=== PATIENT | female | born 1950 | race Caucasian/White ===

== ENCOUNTER 2020-05-02 08:15 | Outpatient (REF) | payer MEDICARE, SELFPAY ==
[2020-05-02 11:24] LABS: MANUAL DIFF FLAG NO
[2020-05-02 11:40] LABS: Basophils Percent Auto 0.5 % (0-2); Eosinophils Absolute Auto 0.2 X10*3/uL (0.0-0.4); Hematocrit 41.8 % (37-47); Hemoglobin 13.5 g/dl (12.0-16.0); Imm Gran Abs Auto 0.01 X10*3/uL (0.00-0.03); Imm Gran Pct Auto 0.2 % (0.0-0.4); Lymphocytes Absolute Auto 1.6 X10*3/uL (1.2-4.9); Lymphocytes Percent Auto 27.9 % (20-40); Mean Corpuscular HGB Conc 32.3 g/dl (31.0-35.0); Mean Corpuscular Volume 89.7 fL (80-98); Mean Platelet Volume 11.3 fL (9.4-12.3); Monocytes Absolute Auto 0.5 X10*3/uL (0.1-1.2); Monocytes Percent Auto 9.2 % (2-11); Neutrophils Absolute Auto 3.4 X10*3/uL (2.0-8.3); Neutrophils Percent Auto 59.2 % (45-73); Platelet Count 252 X10*3/uL (160-400); Red Blood Count 4.66 X10*6/uL (4.20-5.50); Red Cell Distribution Width 13.1 % (11.0-16.0); White Blood Count 5.7 X10*3/uL (4.8-10.8)
[2020-05-02 12:31] LABS: Thyroid Stimulating Hormone 2.02 mIU/mL (0.32-4.0)
[2020-05-02 12:32] LABS: Alanine Aminotransferase 22 U/L (0-31); Albumin Level 4.2 g/dL (3.5-5.0); Alkaline Phosphatase 98 U/L (39-117); Anion Gap 13 (12-20); Aspartate Amino Transferase 19 U/L (5-31); Bilirubin Total 0.5 mg/dL (0.0-1.0); Blood Urea Nitrogen 15 mg/dL (9-16); Calcium 8.4 mg/dL (8.4-10.2); Carbon Dioxide 30 mmol/L (22-29); Chloride 101 mmol/L (96-108); Cholesterol 183 mg/dL; Estimated Glomerular Filt Rate > 60; Glucose Fasting 104 mg/dL (60-99); HDL Cholesterol 43 mg/dL; LDL Cholesterol Calculated 107 mg/dl; Sodium 140 mmol/L (135-145); Total Protein 6.8 g/dL (6.5-8.0); Triglycerides 166 mg/dL
== END 2020-05-02 08:16 | disposition home or self-care (01) ==
LOC: HO.HMGCLDS 08:15
PROVIDERS: PCP Internal Medicine; Visit Provider Internal Medicine
DX: E66.09 Other obesity due to excess calories (principal); M79.7 Fibromyalgia; I10 Essential (primary) hypertension; Z91.09 Other allergy status, other than to drugs and biological substances
CPT/HCPCS: 36415; 80053; 80061; 84443; 85025

== ENCOUNTER 2021-05-01 08:11 | Outpatient (REF) | payer MEDICARE, SELFPAY ==
--- NOTE | ~2021-05-01 | MM_ITS ---
EXAMINATION: MM SCREENING DIGITAL BREAST TOMOSYNTHESIS, BILATERAL CLINICAL INFORMATION: Screening. Asymptomatic. The lifetime risk of breast cancer based on the Tyrer-Cuzick Model is 4.5%. COMPARISON: Mammography: November 14, 2018 and studies dating back to May 10, 2012 TECHNIQUE: Digital breast tomosynthesis is performed in both the craniocaudal and mediolateral oblique views along with computer-aided detection (CAD). Synthesized 2D images are generated from the tomosynthesis. FINDINGS: The breasts are almost entirely fatty (ACR BI-RADS breast composition Category a). There are no significant masses, abnormal calcifications, or other abnormalities. MM/MM tomosynthesis screening BI IMPRESSION: There are no significant changes from prior study. ASSESSMENT: BI-RADS 1: Negative RECOMMENDATION: Routine annual mammography screening. This patient's information was entered into a reminder system with a target due date for their next mammogram.
== END 2021-05-01 08:12 | disposition home or self-care (01) ==
LOC: HO.MAMMO 08:11
PROVIDERS: Visit Provider Internal Medicine
DX: Z12.31 Encounter for screening mammogram for malignant neoplasm of breast (principal)
CPT/HCPCS: 77063; 77067

== ENCOUNTER 2022-05-06 07:53 | Outpatient (REF) | payer MEDICARE, SELFPAY ==
--- NOTE | ~2022-05-06 | MM_ITS ---
EXAMINATION: MM SCREENING DIGITAL BREAST TOMOSYNTHESIS, BILATERAL CLINICAL INFORMATION: Screening. Asymptomatic. COMPARISON: Mammography: 05/01/2021, 11/14/2018, 11/11/2017 TECHNIQUE: Digital breast tomosynthesis is performed in both the craniocaudal and mediolateral oblique views along with computer-aided detection (CAD). Synthesized 2D images are generated from the tomosynthesis. FINDINGS: The breasts are almost entirely fatty (ACR BI-RADS breast composition Category a). There are no significant masses, abnormal calcifications, or other abnormalities. Background stromal markings similar to prior studies. No developing density or architectural abnormality. The axilla are unremarkable. Skin contours are smooth. MM/MM tomosynthesis screening BI IMPRESSION: No mammographic evidence of malignancy. ASSESSMENT: BI-RADS 1: Negative RECOMMENDATION: Routine annual mammography screening. This patient's information was entered into a reminder system with a target due date for their next mammogram.
== END 2022-05-06 07:54 | disposition home or self-care (01) ==
LOC: HO.MAMMO 07:53
PROVIDERS: PCP Internal Medicine; Visit Provider Internal Medicine
DX: Z12.31 Encounter for screening mammogram for malignant neoplasm of breast (principal)
CPT/HCPCS: 77063; 77067

== ENCOUNTER 2022-07-10 08:33 | Outpatient (REF) | payer MEDICARE, SELFPAY ==
[2022-07-10 11:27] LABS: MANUAL DIFF FLAG NO
[2022-07-10 11:28] LABS: Appearance Urine Turbid; Color Urine Yellow; Glucose Urine UA Negative (Negative); Leukocyte Esterase Urine Moderate (2+) (Negative); Nitrite Urine Negative (Negative); PH 5.5 (5.0-9.0); Specific Gravity - Urine 1.025 (1.005-1.025); UMIC TRIGGER UA YES; Urine Blood Negative (Negative); Urine Ketones Negative (Negative); Urine Protein Trace mg/dL (Neg-Trace)
[2022-07-10 11:47] LABS: Bacteria Urine None Seen (None Seen); Hyaline Casts Urine 0-2 /LPF (0-2); Other Crystals Urine Present; WBC Urine 21-50 /HPF (0-5)
[2022-07-10 11:48] LABS: Basophils Absolute Auto 0.1 X10*3/uL (0.0-0.2); Basophils Percent Auto 0.8 % (0-2); Eosinophils Absolute Auto 0.2 X10*3/uL (0.0-0.4); Eosinophils Percent Auto 3.4 % (0-4); Hematocrit 42.2 % (37.0-47.0); Hemoglobin 13.3 g/dl (12.0-16.0); Imm Gran Abs Auto 0.02 X10*3/uL (0.00-0.03); Imm Gran Pct Auto 0.3 % (0.0-0.4); Lymphocytes Absolute Auto 2.1 X10*3/uL (1.2-4.9); Lymphocytes Percent Auto 31.4 % (20-40); Mean Corpuscular HGB Conc 31.5 g/dl (31.0-35.0); Mean Corpuscular Hemoglobin 28.4 pg (27.0-33.0); Mean Platelet Volume 10.8 fL (9.4-12.3); Monocytes Absolute Auto 0.6 X10*3/uL (0.1-1.2); Monocytes Percent Auto 9.8 % (2-11); Neutrophils Absolute Auto 3.6 x10*3/uL (2.0-8.3); Neutrophils Percent Auto 54.3 % (45-73); Platelet Count 270 X10*3/uL (160-400); Red Blood Count 4.69 X10*6/uL (4.20-5.50); Red Cell Distribution Width 13.2 % (11.0-16.0); White Blood Count 6.5 X10*3/uL (4.8-10.8)
[2022-07-10 12:01] LABS: Estimated Average Glucose 108 mg/dL; Hemoglobin A1c % 5.4 %
[2022-07-10 12:29] LABS: Alanine Aminotransferase 21 U/L (0-31); Albumin Level 3.9 g/dL (3.5-5.0); Alkaline Phosphatase 99 U/L (39-117); Anion Gap 10 (12-20); Aspartate Amino Transferase 15 U/L (5-31); Bilirubin Total 0.5 mg/dL (0.0-1.0); Blood Urea Nitrogen 19 mg/dL (9-16); Calcium 9.1 mg/dL (8.4-10.2); Carbon Dioxide 33 mmol/L (22-29); Chloride 102 mmol/L (96-108); Cholesterol 206 mg/dL; Estimated Glomerular Filt Rate > 60; Glucose Fasting 88 mg/dL (60-99); HDL Cholesterol 46 mg/dL; LDL Cholesterol Calculated 131 mg/dl; Sodium 141 mmol/L (135-145); Total Protein 6.4 g/dL (6.5-8.0); Triglycerides 145 mg/dL
[2022-07-10 12:46] LABS: Thyroid Stimulating Hormone 3.05 uIU/mL (0.32-4.0); Vitamin D 25-OH Total 28.3 ng/mL (>30)
== END 2022-07-10 08:34 | disposition home or self-care (01) ==
LOC: HO.HMGCLDS 08:33
PROVIDERS: PCP Internal Medicine; Visit Provider Internal Medicine
DX: I10 Essential (primary) hypertension (principal); E78.00 Pure hypercholesterolemia, unspecified; K21.9 Gastro-esophageal reflux disease without esophagitis; E66.09 Other obesity due to excess calories; M79.7 Fibromyalgia; K52.9 Noninfective gastroenteritis and colitis, unspecified; Z91.09 Other allergy status, other than to drugs and biological substances
CPT/HCPCS: 36415; 80053; 80061; 81001; 82306; 83036; 84443; 85025

== ENCOUNTER 2023-02-05 09:16 | Outpatient (REF) | payer MEDICARE, SELFPAY ==
--- NOTE | 2023-02-05 | PFT_ITS ---
FLOWS: 1. FEV1 90% of predicted at 1.71 L. 2. FVC 81% of predicted at 2.03 L. 3. FEV1 to FVC ratio of 0.84. 4. No bronchodilator response. LUNG VOLUMES: 1. Total lung capacity 80% of predicted at 3.59 L. 2. Residual volume 73% of predicted at 1.47 L. 3. Slow vital capacity 86% of predicted at 2.12 L. 4. Expiratory reserve volume 17 % of predicted at 0.09 L. 5. Diffusion capacity is normal. IMPRESSION: No obstructive or restrictive ventilatory defect. No bronchodilator response. Decreased expiratory reserve volume suggests extrathoracic restriction likely secondary to abdominal obesity. Solis John MD AP/MODL / [id number]
--- NOTE | ~2023-02-05 | XR_ITS ---
EXAMINATION: XR CHEST CLINICAL INFORMATION: Chronic cough COMPARISON: None available. TECHNIQUE: 2 views of the chest were obtained. FINDINGS: No significant abnormality is noted involving the heart, lungs, mediastinum, bony thorax or soft tissues. XR/XR chest 2V IMPRESSION: Unremarkable examination.
== END 2023-02-05 09:17 | disposition home or self-care (01) ==
LOC: HO.RESP 09:16
PROVIDERS: PCP Internal Medicine; Visit Provider Internal Medicine
DX: R05.3 Chronic cough (principal)
CPT/HCPCS: 71046; 94010; 94727; 94729

== ENCOUNTER → 2023-02-05 09:20 | Outpatient (BNV) | payer MEDICARE, SELFPAY | PROVIDERS: PCP Internal Medicine; Visit Provider Internal Medicine Pulmonary Disease | DX: R06.09 Other forms of dyspnea (principal); R05.3 Chronic cough | CPT/HCPCS: 94060; 94727; 94729 ==

== ENCOUNTER 2023-05-06 08:47 | Outpatient (REF) | payer MEDICARE, SELFPAY ==
--- NOTE | ~2023-05-06 | MR_ITS ---
EXAMINATION: MR BRAIN WITHOUT CONTRAST CLINICAL INFORMATION: Cerebellar ataxia COMPARISON: None TECHNIQUE: Multiplanar multisequence MR imaging of the brain was obtained without intravenous contrast. FINDINGS: There is no acute infarct on diffusion-weighted imaging. There is no intracranial hemorrhage on iron-sensitive imaging. No extra-axial collection or mass effect/herniation. There are several scattered foci of nonspecific supratentorial white matter T2/FLAIR signal abnormality. No hydrocephalus. The ventricles are normal in morphology and size. The major flow voids at the skull base are preserved. The midline structures are normal. The cerebellar tonsils are normally positioned. The craniocervical junction is normal. Marrow signal is within normal limits. The visualized soft tissues are without significant abnormality. No signal abnormality within the paranasal sinuses or within the mastoid air cells. MR/MR head/brain wo con IMPRESSION: Unremarkable noncontrast MRI of the brain.
== END 2023-05-06 08:48 | disposition home or self-care (01) ==
LOC: HO.MRI 08:47
PROVIDERS: PCP Internal Medicine; Visit Provider Psychiatry & Neurology Neurology
DX: G11.9 Hereditary ataxia, unspecified (principal)
CPT/HCPCS: 70551

== ENCOUNTER 2023-05-12 08:04 | Outpatient (REF) | payer MEDICARE, SELFPAY ==
--- NOTE | ~2023-05-12 | MM_ITS ---
EXAMINATION: MM SCREENING DIGITAL BREAST TOMOSYNTHESIS, BILATERAL CLINICAL INFORMATION: Screening. Asymptomatic. COMPARISON: Mammography: This study is compared with prior exams dating back to 2017. TECHNIQUE: Digital breast tomosynthesis is performed in both the craniocaudal and mediolateral oblique views along with computer-aided detection (CAD). Synthesized 2D images are generated from the tomosynthesis. FINDINGS: The breasts are almost entirely fatty (ACR BI-RADS breast composition Category a). There are no significant masses, abnormal calcifications, or other abnormalities. MM/MM tomosynthesis screening BI IMPRESSION: No mammographic evidence of malignancy. ASSESSMENT: BI-RADS BI-RADS 1 - Negative RECOMMENDATION: Routine annual mammography screening. 1 year F/U This examination should not preclude the clinical evaluation of a suspicious palpable abnormality. This patient's information was entered into a reminder system with a target due date for their next mammogram.
== END 2023-05-12 08:05 | disposition home or self-care (01) ==
LOC: HO.MAMMO 08:04
PROVIDERS: PCP Internal Medicine; Visit Provider Internal Medicine
DX: Z12.31 Encounter for screening mammogram for malignant neoplasm of breast (principal)
CPT/HCPCS: 77063; 77067

== ENCOUNTER → 2023-05-12 08:15 | Outpatient (BNV) | payer MEDICARE, SELFPAY | PROVIDERS: PCP Internal Medicine; Visit Provider Radiology Diagnostic Radiology | DX: Z12.31 Encounter for screening mammogram for malignant neoplasm of breast (principal) | CPT/HCPCS: 77063; 77067 ==

== ENCOUNTER 2024-02-24 08:07 | Outpatient (REF) | payer MEDICARE, SELFPAY ==
[2024-02-24 10:01] LABS: MANUAL DIFF FLAG NO
[2024-02-24 10:05] LABS: Basophils Percent Auto 0.6 % (0-2); Eosinophils Absolute Auto 0.2 X10*3/uL (0.0-0.4); Eosinophils Percent Auto 3.2 % (0-4); Hematocrit 42.5 % (37.0-47.0); Imm Gran Abs Auto 0.02 X10*3/uL (0.00-0.03); Imm Gran Pct Auto 0.3 % (0.0-0.4); Lymphocytes Absolute Auto 1.9 X10*3/uL (1.2-4.9); Lymphocytes Percent Auto 27.8 % (20-40); Mean Corpuscular HGB Conc 32.9 g/dl (31.0-35.0); Mean Corpuscular Hemoglobin 29.5 pg (27.0-33.0); Mean Corpuscular Volume 89.7 fL (80.0-98.0); Mean Platelet Volume 11.3 fL (9.4-12.3); Monocytes Absolute Auto 0.6 X10*3/uL (0.1-1.2); Neutrophils Percent Auto 59.1 % (45-73); Platelet Count 248 X10*3/uL (160-400); Red Blood Count 4.74 X10*6/uL (4.20-5.50); Red Cell Distribution Width 13.9 % (11.0-16.0); White Blood Count 6.8 X10*3/uL (4.8-10.8)
[2024-02-24 10:26] LABS: Alanine Aminotransferase 21 U/L (0-31); Albumin Level 4.2 g/dL (3.5-5.0); Alkaline Phosphatase 92 U/L (39-117); Anion Gap 12 (12-20); Aspartate Amino Transferase 17 U/L (5-31); Bilirubin Total 0.8 mg/dL (0.0-1.0); Blood Urea Nitrogen 19 mg/dL (9-16); Calcium 9.8 mg/dL (8.4-10.2); Carbon Dioxide 29 mmol/L (22-29); Chloride 103 mmol/L (96-108); Cholesterol 178 mg/dL (<200); Estimated Glomerular Filt Rate > 60; Glucose Fasting 114 mg/dL (60-99); HDL Cholesterol 42 mg/dL (>40); LDL Cholesterol Calculated 109 mg/dL (<100); Potassium 4.2 mmol/L (3.3-5.1); Sodium 140 mmol/L (135-145); Total Protein 7.2 g/dL (6.5-8.0); Triglycerides 137 mg/dL (<150)
[2024-02-24 10:45] LABS: Thyroid Stimulating Hormone 2.14 uIU/mL (0.32-4.0)
== END 2024-02-24 08:08 | disposition home or self-care (01) ==
LOC: HO.HMGCLDS 08:07
PROVIDERS: PCP Internal Medicine; Visit Provider Internal Medicine
DX: I10 Essential (primary) hypertension (principal); E78.00 Pure hypercholesterolemia, unspecified; R05.3 Chronic cough; K21.9 Gastro-esophageal reflux disease without esophagitis; E66.09 Other obesity due to excess calories; Z91.09 Other allergy status, other than to drugs and biological substances
CPT/HCPCS: 36415; 80053; 80061; 84443; 85025

== ENCOUNTER 2024-05-17 09:38 | Outpatient (REF) | payer MEDICARE, SELFPAY ==
--- NOTE | ~2024-05-17 | MM_ITS ---
EXAMINATION: MM SCREENING DIGITAL BREAST TOMOSYNTHESIS, BILATERAL CLINICAL INFORMATION: Screening. Asymptomatic. COMPARISON: Mammography: Comparison is made with available priors TECHNIQUE: Digital breast mammography with tomosynthesis is performed in both the craniocaudal and mediolateral oblique views along with computer-aided detection (CAD). FINDINGS: There are scattered areas of fibroglandular density (ACR BI-RADS breast composition Category b). There are no significant masses, abnormal calcifications, or other abnormalities. MM/MM tomosynthesis screening BI IMPRESSION: No mammographic evidence of malignancy. ASSESSMENT: BI-RADS BI-RADS 1 - Negative RECOMMENDATION: Routine annual mammography screening. 1 year F/U This examination should not preclude the clinical evaluation of a suspicious palpable abnormality. This patient's information was entered into a reminder system with a target due date for their next mammogram. Electronically signed by: Leslie Luu DO 05/24/2024 12:40 PM [facility]
== END 2024-05-17 09:39 | disposition home or self-care (01) ==
LOC: HO.MAMMO 09:38
PROVIDERS: PCP Internal Medicine; Visit Provider Internal Medicine
DX: Z12.31 Encounter for screening mammogram for malignant neoplasm of breast (principal)
CPT/HCPCS: 77063; 77067

== ENCOUNTER → 2024-05-17 09:45 | Outpatient (BNV) | payer MEDICARE, SELFPAY | PROVIDERS: PCP Internal Medicine; Visit Provider Internal Medicine | DX: Z12.31 Encounter for screening mammogram for malignant neoplasm of breast (principal) | CPT/HCPCS: 77063; 77067 ==

== ENCOUNTER 2024-11-29 11:13 | Outpatient (AMB) | payer MEDICARE, SELFPAY ==
--- NOTE | 2024-11-29 11:14 | A.OFFPC_ITS ---
Vital Signs 11/29/24 11:44 Height 5 ft Weight 205 lb BMI 40.0 BP 177/79 H Respiration 14 Pulse 62 Pulse Source Pulse Oximeter Temp 97.9 F Temp Source Temporal Artery Scan Pulse Oximetry (%) 98 Oxygen Delivery Method Room Air Intake Visit Reasons: 6 Month Follow Up [employer] Registrar Required: No Accompanied by: Self / Same As Patient Allergies acetaminophen [Fioricet] Allergy (Unknown, Verified 11/29/24 13:04) Unknown butalbital [Fioricet] Allergy (Unknown, Verified 11/29/24 13:04) Unknown caffeine [Fioricet] Allergy (Unknown, Verified 11/29/24 13:04) Unknown hydrochlorothiazide Allergy (Unknown, Verified 11/29/24 13:04) Unknown oxycodone [Percocet] Allergy (Unknown, Verified 11/29/24 13:04) Unknown penicillin V Allergy (Unknown, Verified 11/29/24 13:04) Unknown Sulfa (Sulfonamide Antibiotics) Allergy (Unknown, Verified 11/29/24 13:04) Unknown Bactrim Allergy (Unknown, Uncoded 11/29/24 13:04) Unknown Penicillin Allergy (Unknown, Uncoded 11/29/24 13:04) Unknown Pt states no known food allerg Allergy (Unknown, Uncoded 11/29/24 13:04) Unknown Medication List - Last Reconciled 11/29/24 by Penelope Riley PA-C aspirin 81 mg PO DAILY atorvastatin 40 mg PO DAILY cetirizine (Zyrtec) 10 mg PO DAILY PRN dryxdespztp-psiqsfwrl-vbsdrofp 200-62.5-25 mcg (Trelegy Ellipta) 1 ea inhalation DAILY furosemide (Lasix) 80 mg PO DAILY gabapentin 300 mg PO BEDTIME meloxicam 15 mg PO DAILY metoprolol succinate ER 100 mg PO DAILY pantoprazole 40 mg PO DAILY tirzepatide (weight loss) (Zepbound) 2.5 mg (0.5 mL) subcut QWEEK Tobacco use date assessed: 11/29/24 Fall risk assessment: No Falls in past year Last assessed Fall Risk: 11/29/24 Dental Screening Dental Screen Date: 11/29/24 Did you have a dental visit in the last 12 months?: Yes Did you have a dental problem in the last 6 months where you did not have access to dental care?: No Was dental information given to patient?: Patient has dentist HPI 6 Month Follow Up HPI Details The patient is a 74-year-old female presenting for a scheduled six- month follow-up and transition of primary care due to her previous physician's shelter. She also seeks management of multiple chronic conditions including controlled essential hypertension, hyperlipidemia, and osteoarthritis-related pain, which have been stable under current pharmaceutical treatment regimens. The patient notes a chronic cough persisting for over two years, notably attributed by an access specialist to allergens rather than respiratory disease, managed somewhat by a Trelegy inhaler. The patient has a substantial medical history, including bilateral knee replacements, historical uterine cancer, superficial thrombophlebitis, and prediabetes, prompting ongoing surveillance of her metabolic state. Discussion during this visit focused on medication management for existing conditions, addressing ongoing healthcare needs concerning venous insufficiency, GERD-re lated symptoms, and weight management challenges. Compliance with prescribed therapies remains a priority, particularly concerning her prediabetic status and efforts to optimize cardiovascular and overall health. Social History - Family status: noted as health care proxy. - Substance use: Denies use. - Functional status: High blood pressure noted; plans to monitor at home. - Nutrition: Preoccupation with weight m anagement, past use of Trulicity. [facility] Medical History (Updated 11/29/24 @ 13:13 by Penelope Riley PA-C) Osteoarthritis History of mammogram (~05/17/24) Mass of right axilla H/O dysmenorrhea Uterine cancer Cervical erosion GERD (gastroesophageal reflux disease) Vertigo Menopause Fibromyalgia Depression History of colitis Superficial thrombophlebitis Venous insufficiency Varicose veins of both lower extremities Decreased hearing Pure hypercholesterolemia, unspecified Hypertension Prediabetes Hyperlipidemia Morbid obesity with body mass index (BMI) of 40.0 to 44.9 in adult Hoarseness Establishing care with new doctor, encounter for Chronic cough Bronchospasm Surgical History History of colonoscopy (~10/19/18) Family History Father BP (high blood pressure) High cholesterol Heart disease Mother Osteosarcoma Social History Housing: House Alcohol intake: current Alcohol intake frequency: a few times a month Patient Tobacco Use Status: Never used Tobacco service: No Current occupational status: retired Cognitive needs: Yes (cane) Hearing needs: No Vision needs: Yes (reading glasses) Questionnaire PHQ-9 Over the last 2 weeks, how often have you been bothered by any of the following problems? 1. Little interest or pleasure in doing things: not at all 2. Feeling down, depressed, or hopeless: not at all 3. Trouble falling or staying asleep, or sleeping too much: not at all 4. Feeling tired or having little energy: not at all 5. Poor appetite or overeating: not at all 6. Feeling bad about yourself - or that you are a failure or have let yourself or your family down: not at all 7. Trouble concentrating on things, such as reading the newspaper or watching television: not at all 8. Moving or speaking so slowly that other people could have noticed. Or the opposite - being so fidgety or restless that you have been moving around a lot more than usual: not at all 9. Thoughts that you would be better off or of hurting yourself in some way: not at all Total score: 0 Depression Screening Interpretation: Negative Depression Screening Done: Yes 11192 - PHQ-9 Billing: Yes Source: Developed by Drs. Tyshawn Jacques, Zenaida Miramontes, Emil Groves and colleagues, with an educational shahid from [employer]. Thrive Questionnaire Date Thrive assessed: 11/29/24 I am a: Patient What is your living situation today?: I have a steady place to live Within the past 12 months, did the food you bought not last and you didn't have the money to get more?: Never true Within the past 12 months, did you worry whether your food would run out before you got money to buy more?: Never true Do you have trouble paying for medicines?: No Do you have trouble getting transportation to medical appointments?: No Do you have trouble paying your heating and electricity bill?: No Do you have trouble taking care of your child, family member or friend?: No Do you have trouble with day-to-day activities such as bathing, preparing meals, shopping, managing finances, etc.?: No Are you currently unemployed and looking for a job?: No Are you interested in more education?: No Please select the resources that you would like help with: None THRIVE Score: 0 AUDIT C Alcohol Use Questionnaire (AUDIT-C) 1. How often do you have a drink containing alcohol?: 2-4 times a month 2. How many drinks containing alcohol do you have on a typical day when you are drinking?: 1 or 2 3. How often do you have six or more drinks on one occasion?: Never Total Score: 2 Score Reviewed/Action Taken: No MARCO A-7 AMB Questionnaire MARCO A-7 Date MARCO A - 7 assessed: 11/29/24 Feeling nervous, anxious, or on edge: 0 = Not at all Not being able to stop or control worryin = Not at all Worrying too much about different things: 0 = Not at all Trouble relaxin = Not at all Being so restless that it is hard to sit still: 0 = Not at all Becoming easily annoyed or irritable: 0 = Not at all Feeling afraid as if something awful might happen: 0 = Not at all Total MARCO A-7 score (0-4 normal; 5-9 mild; 10-14 moderate; 15-21 severe): 0 Source: Developed by Drs. Tyshawn Jacques, Zenaida Miramontes, Emil Groves and colleagues, with an educational shahid from [employer]. MARCO A-7 Assessment Billing MARCO A-7 Assessment Tool: MARCO A-7 Assessment 29359 Review of Systems Const Details: - Cardiovascular: Denies chest pain; reports stabilized hypertension. - Respiratory: Reports chronic cough, improved but persistent; denies asthma diagnosis. - Musculoskeletal: Reports osteoarthritis pain in knees and neck. - Neurological: Reports vertigo; denies significant neurological episodes. - Gastrointestinal: Reports GERD, historical colitis; denies recent exacerbations. - Genitourinary: Denies dysmenorrhagia currently. - Psychiatric: Reports depression, fibromyalgia history; denies active distress. - Social Work Case Manager: Reports prediabetes; denies diabetes diagnosis. - Dermatological: Denies recent dermatologic issues aside from varicose veins. - Hematological: Denies anemia; reported as resolved. Physical exam (Primary Care) Vital Signs: Last Vital Signs Temp 97.9 F 11/29/24 11:44 Pulse 62 11/29/24 11:44 Resp 14 11/29/24 11:44 BP 177/79 H 11/29/24 11:44 Pulse Ox 98 11/29/24 11:44 Oxygen Delivery Method Room Air 11/29/24 11:44 Care Plan Goal for BP management: <140/90 patient to continue furosemide 80 mg daily, metoprolol 100 mg daily. Patient to monitor her blood pressure daily for the next 2 weeks and return with blood pressure log at that time we will discuss if patient needs to be started on another blood pressure medication. BMI result Body Mass Index 40.0 BMI Assessment/Plan discussion: High BMI High, discussed plan: lifestyle, weight reduction, dietary, physical activity and alcohol moderation Tobacco/Smoking Status: Tobacco use Status Tobacco use date assessed 11/29/24 11/29/24 11:17 Patient Tobacco Use Status Never used Tobacco 11/29/24 11:54 PHQ-9: PHQ-9 Score PHQ-9: Total score 0 11/29/24 11:59 Depression Screening Interpretation: Negative Thrive Assessment: Date of Thrive Assessment Date Thrive assessed 11/29/24 11/29/24 11:17 ACP: Patient is a full code Advance Care Planning discussion: Completed/Scanned Date of discussion: 11/29/24 Who was present: Patient, myself Forms completed: MOLST Time spent: 16-45 minutes Actual minutes spent: 25 Did not discuss due to Cultural/Spiritual beliefs: No Const Other: Appearance: Alert. Oriented X3. No acute distress. Head: Normal external exam. Normocephalic. Atraumatic. Eyes: Pupils are equal, round, and reactive to light. Extraocular movements intact. Conjunctiva and sclera normal. Eyelids normal. Ears: External auditory canal normal. Tympanic membranes normal. Throat: Pharynx normal. Uvula midline. Moist mucous membranes. Neck: Normal inspection. Neck supple. Full range of motion. No adenopathy. Thyroid Normal. No meningeal signs. No neck mass noted. Cardiovascular: Normal heart rate and rhythm. Heart sound normal. No murmurs noted. Pulses normal throughout. Respiratory: No respiratory distress. Painless inspiration. Breath sounds normal. No wheezes/rales/rhonchi noted. Chest nontender. No accessory muscle usage noted or decreased air movement noted. Abdomen: Soft and nontender. Bowel sounds normal in all 4 quadrants. No distention noted. No organomegaly noted. No visible injury noted. Back: No costovertebral angle tenderness. Full range of motion noted. Skin: Skin warm and dry. Normal skin color. Normal skin turgor. No rashes/lesions/lacerations noted. Extremities: No lower extremity edema. Extremities exhibit normal range of motion. Extremities nontender. Neuro: Oriented X 3. No motor deficit. No sensory deficit. Reflexes normal. Results AMB Hemoglobin A1c AMB Hemoglobin A1c 6.0 % Last Edit by RADAMES Nielsen on 11/29/24 13:10 Results Reviewed Results Reviewed: - Labs: CBC, kidney, and liver function tests are within normal limits; A1c at 6.0%. - Tests: Colonoscopy last in 2018, mammogram last in Apr 2024. - Diagnostics: No imaging findings discussed. Coding Level of Care Code New Pt Level 4 (54098) Complex EM visit Add On G2211 Diagnoses Establishing care with new doctor, encounter for Z76.89 Hypertension I10 Chronic cough R05.3 Prediabetes R73.03 Osteoarthritis M19.90 Hyperlipidemia E78.5 Venous insufficiency I87.2 Varicose veins of both lower extremities I83.93 Morbid obesity with body mass index (BMI) of 40.0 to 44.9 in adult E66.01; Z68.41 Additional Codes PHQ-9 - 13273 - PHQ-9 Billing: Yes ([id number]) MARCO A-7 Assessment Billing - MARCO A-7 Assessment Tool: MARCO A-7 Assessment 36268 ([id number]) Vital Signs *Quality* - Advance Care Planning discussion: Completed/Scanned ([id number]) Vital Signs *Quality* - Time spent: 16-45 minutes ([id number]) Time Spent (min) 60 Assessment & Plan Assessment & Plan (1) Establishing care with new doctor, encounter for: Code(s): Z76.89 - Persons encountering health services in other specified circumstances Category: Medical (2) Hypertension: Code(s): I10 - Essential (primary) hypertension Category: Medical Plan: Patient to continue aspirin 81 mg daily, atorvastatin 40 mg daily, furosemide 80 mg daily, metoprolol extended release 100 mg daily. Patient to monitor her blood pressure over the next 2 weeks and bring back blood pressure log at next appointment in 2 weeks to discuss blood pressure management. Condition is chronic and stable continue to monitor. (3) Chronic cough: Code(s): R05.3 - Chronic cough Category: Medical Plan: Plan: Pulmonology referral to assess ongoing symptoms. Condition is chronic and stable continue to monitor. (4) Prediabetes: Code(s): R73.03 - Prediabetes Category: Medical Plan: Plan: Explore weight loss medication options; insurance to confirm Zepbound. Condition is chronic and stable continue to monitor. (5) Osteoarthritis: Code(s): M19.90 - Unspecified osteoarthritis, unspecified site Category: Medical Plan: Plan: Continue with current pain management; observe joint mobilization. Condition is chronic and stable will continue to monitor. (6) Hyperlipidemia: Code(s): E78.5 - Hyperlipidemia, unspecified Category: Medical Plan: Patient to continue atorvastatin 40 mg daily. Plan: Reassess with updated bloodwork. Condition is chronic and stable continue to monitor. (7) Venous insufficiency: Code(s): I87.2 - Venous insufficiency (chronic) (peripheral) Category: Medical Plan: Plan: Maintain status quo; symptom management prioritized. Condition is chronic and stable continue to monitor. (8) Varicose veins of both lower extremities: Code(s): I83.93 - Asymptomatic varicose veins of bilateral lower extremities Category: Medical Plan: Plan: Maintain status quo; symptom management prioritized. Condition is chronic and stable continue to monitor. (9) Morbid obesity with body mass index (BMI) of 40.0 to 44.9 in adult: Code(s): E66.01 - Morbid (severe) obesity due to excess calories; Z68.41 - Body mass index [BMI] 40.0-44.9, adult Category: Medical Plan: Patient to improve diet and exercise regimen. Will attempt to send weight loss medication to the patient's pharmacy pending insurance approval. Condition is chronic and stable continue to monitor. Plan Plan Patient was informed and verbally consented to the use of an ambient scribe for clinic note documentation during this visit. 1. Hypertension Plan: Monitor BP at home and follow up in 2 weeks. 2. Chronic Cough Plan: Pulmonology referral to assess ongoing symptoms. 3. Prediabetes Plan: Explore weight loss medication options; insurance to confirm Zepbound. 4. Osteoarthritis Plan: Continue with current pain management; observe joint mobilization. 5. Hyperlipidemia Plan: Reassess with updated bloodwork. 6. Venous Insufficiency Plan: Maintain status quo; symptom management prioritized. During our consultation, we discussed several chronic issues, predominantly focusing on her cardiovascular health considering recent readings indicating elevated blood pressure. The patient was advised to monitor this at home over the next fortnight and to maintain records, which will inform potential adjustments to Metoprolol dosage upon reassessment. Prediabetes is confirmed via an A1c level of 6.0%, and steps to engage insurance in a trial of Zepbound were initiated, combined with exploration of potential lifestyle/medical referrals. I reiterated the importance of continued adherence to statins for hyperlipidemia and proposed bloodwork for further appraisal. Given the multifaceted nature of the patient's chronic symptoms, including osteoarthritis-related discomfort, established therapy with Meloxicam is maintained, with an emphasis on symptom tracking and activity modulation. Orders: Orders C Reactive Protein Today Z00.00 - Encounter for general adult medical examination without abnormal findings Liver Panel Today Z00.00 - Encounter for general adult medical examination without abnormal findings Lipid Panel Today Z00.00 - Encounter for general adult medical examination without abnormal findings TSH reflex Free T4 Today Z00.00 - Encounter for general adult medical examination without abnormal findings Magnesium Today Z00.00 - Encounter for general adult medical examination without abnormal findings XR DEXA axial skeleton Today M81.0 - Age-related osteoporosis without current pathological fracture Complete Blood Count Auto Diff Today Z00.00 - Encounter for general adult medical examination without abnormal findings Comprehensive Duarte. Panel Fast Today Z00.00 - Encounter for general adult medical examination without abnormal findings Vitamin B12 and Folate Today Z00.00 - Encounter for general adult medical examination without abnormal findings Vitamin D 25-OH Total Today Z00.00 - Encounter for general adult medical examination without abnormal findings AMB Hemoglobin A1c Today R73.03 - Prediabetes Referrals Pulmonology Referral J98.01 - Acute bronchospasm, R05.3 - Chronic cough, R49.0 - Dysphonia Medications: New tirzepatide (weight loss) (Zepbound) for 4 weeks 2.5 mg (0.5 mL) subcut QWEEK 2 mL 0RF E66.01 - Morbid (severe) obesity due to excess calories, E78.5 - Hyperlipidemia, unspecified, I10 - Essential (primary) hypertension, R73.03 - Prediabetes, Z68.41 - Body mass index [BMI] 40.0-44.9, adult Patient Instructions: - Monitor blood pressure at home twice a week for two weeks, record readings. - Follow up with blood pressure results at your next appointment. - Continue current medications as prescribed but ensure monitoring for any side effects. - Arrange a pulmonology consultation for chronic cough evaluation. - Pursue weight management strategies; consult should insurance allow weight loss medication. - Continue cholesterol medication and have blood drawn ahead of your next visit for levels. - Maintain physical activity as tolerated; focus on joint mobility, particularly knees. - Schedule and attend all recommended health screenings, including mammograms and bone scans.
[2024-11-29 11:44] VITALS: BP 177/79; PULSE 62; RESP 14; TEMP 36.6; O2SAT 98; BMI 40.0
== END 2024-11-29 12:36 | disposition home or self-care (01) ==
LOC: HO.HMCSH 11:13
PROVIDERS: PCP Internal Medicine; Visit Provider Physician Assistant Medical
DX: Z76.89 Persons encountering health services in other specified circumstances (principal); I10 Essential (primary) hypertension; R05.3 Chronic cough; R73.03 Prediabetes; M19.90 Unspecified osteoarthritis, unspecified site; E78.5 Hyperlipidemia, unspecified; I87.2 Venous insufficiency (chronic) (peripheral); I83.93 Asymptomatic varicose veins of bilateral lower extremities; E66.01 Morbid (severe) obesity due to excess calories; Z68.41 Body mass index [BMI] 40.0-44.9, adult; Z00.00 Encounter for general adult medical examination without abnormal findings

== ENCOUNTER → 2024-11-29 11:13 | Outpatient (BNVA) | payer MEDICARE, SELFPAY | PROVIDERS: PCP Internal Medicine; Visit Provider Physician Assistant Medical | DX: I10 Essential (primary) hypertension (principal); R05.3 Chronic cough; R73.03 Prediabetes; M19.90 Unspecified osteoarthritis, unspecified site; E78.5 Hyperlipidemia, unspecified; I87.2 Venous insufficiency (chronic) (peripheral); I83.93 Asymptomatic varicose veins of bilateral lower extremities; E66.01 Morbid (severe) obesity due to excess calories; Z68.41 Body mass index [BMI] 40.0-44.9, adult; Z71.3 Dietary counseling and surveillance | CPT/HCPCS: 83036; 96127; 99202; 99497 ==

== ENCOUNTER 2024-12-02 08:03 | Outpatient (REF) | payer MEDICARE, SELFPAY ==
[2024-12-02 11:10] LABS: MANUAL DIFF FLAG NO
[2024-12-02 11:19] LABS: Basophils Absolute Auto 0.1 X10*3/uL (0.0-0.2); Basophils Percent Auto 0.7 % (0-2); Eosinophils Absolute Auto 0.2 X10*3/uL (0.0-0.4); Eosinophils Percent Auto 2.3 % (0-4); Hematocrit 41.5 % (37.0-47.0); Hemoglobin 13.5 g/dl (12.0-16.0); Imm Gran Abs Auto 0.03 X10*3/uL (0.00-0.03); Imm Gran Pct Auto 0.4 % (0.0-0.4); Lymphocytes Absolute Auto 1.8 X10*3/uL (1.2-4.9); Mean Corpuscular HGB Conc 32.5 g/dl (31.0-35.0); Mean Corpuscular Hemoglobin 29.1 pg (27.0-33.0); Mean Corpuscular Volume 89.4 fL (80.0-98.0); Mean Platelet Volume 11.2 fL (9.4-12.3); Monocytes Absolute Auto 0.7 X10*3/uL (0.1-1.2); Monocytes Percent Auto 10.3 % (2-11); Neutrophils Absolute Auto 4.1 x10*3/uL (2.0-8.3); Neutrophils Percent Auto 60.3 % (45-73); Platelet Count 241 X10*3/uL (160-400); Red Blood Count 4.64 X10*6/uL (4.20-5.50); Red Cell Distribution Width 13.8 % (11.0-16.0); White Blood Count 6.8 X10*3/uL (4.8-10.8)
[2024-12-02 11:45] LABS: Alanine Aminotransferase 20 U/L (0-31); Albumin Level 4.1 g/dL (3.5-5.0); Alkaline Phosphatase 106 U/L (39-117); Anion Gap 10 (12-20); Aspartate Amino Transferase 21 U/L (5-31); Bilirubin Direct 0.2 mg/dL (0.0-0.5); Bilirubin Total 0.5 mg/dL (0.0-1.0); Blood Urea Nitrogen 20 mg/dL (9-16); Calcium 9.3 mg/dL (8.4-10.2); Carbon Dioxide 30 mmol/L (22-29); Chloride 105 mmol/L (96-108); Cholesterol 171 mg/dL (<200); Estimated Glomerular Filt Rate > 60; Glucose Fasting 117 mg/dL (60-99); HDL Cholesterol 45 mg/dL (>40); LDL Cholesterol Calculated 104 mg/dL (<100); Magnesium 2.2 mg/dL (1.6-2.6); Sodium 141 mmol/L (135-145); Total Protein 6.8 g/dL (6.5-8.0); Triglycerides 111 mg/dL (<150)
[2024-12-02 12:00] LABS: Folate 13.1 ng/mL (> or = 4.0); Vitamin B12 401 pg/mL (200-900)
[2024-12-02 12:03] LABS: TSH reflex Free T4 2.06 uIU/mL (0.32-4.0); Vitamin D 25-OH Total 39.1 ng/mL (>30)
== END 2024-12-02 08:04 | disposition home or self-care (01) ==
LOC: HO.HMGCLDS 08:03
PROVIDERS: Visit Provider Physician Assistant Medical
DX: Z00.00 Encounter for general adult medical examination without abnormal findings (principal); Z13.220 Encounter for screening for lipoid disorders; Z13.818 Encounter for screening for other digestive system disorders; Z13.29 Encounter for screening for other suspected endocrine disorder; Z13.228 Encounter for screening for other metabolic disorders; Z13.0 Encounter for screening for diseases of the blood and blood-forming organs and certain disorders involving the immune mechanism
CPT/HCPCS: 36415; 80053; 80061; 80076; 82248; 82306; 82607; 82746; 83735; 84443; 85025; 86140

== ENCOUNTER 2024-12-11 10:28 | Outpatient (AMB) | payer MEDICARE, SELFPAY ==
--- NOTE | 2024-12-11 10:26 | A.OFFPC_ITS ---
Vital Signs 12/11/24 10:27 Height 5 ft Weight 204 lb BMI 39.8 BP 140/63 H Blood Pressure Location Lt brachial Position Sitting Respiration 16 Pulse 60 Pulse Source Pulse Oximeter Temp 97.3 F Temp Source Temporal Artery Scan Pulse Oximetry (%) 98 Oxygen Delivery Method Room Air Intake Visit Reasons: 2 Week follow up Cad Draftsman Required: No Accompanied by: Self / Same As Patient Allergies acetaminophen [Fioricet] Allergy (Unknown, Verified 12/11/24 10:27) Unknown butalbital [Fioricet] Allergy (Unknown, Verified 12/11/24 10:27) Unknown caffeine [Fioricet] Allergy (Unknown, Verified 12/11/24 10:27) Unknown hydrochlorothiazide Allergy (Unknown, Verified 12/11/24 10:27) Unknown oxycodone [Percocet] Allergy (Unknown, Verified 12/11/24 10:27) Unknown penicillin V Allergy (Unknown, Verified 12/11/24 10:27) Unknown Sulfa (Sulfonamide Antibiotics) Allergy (Unknown, Verified 12/11/24 10:27) Unknown Bactrim Allergy (Unknown, Uncoded 12/11/24 10:27) Unknown Penicillin Allergy (Unknown, Uncoded 12/11/24 10:27) Unknown Pt states no known food allerg Allergy (Unknown, Uncoded 12/11/24 10:27) Unknown Tobacco use date assessed: 12/11/24 Dental Screening Dental Screen Date: 11/29/24 HPI 2 Week follow up HPI Details The patient is a 74-year-old female presenting for a follow-up visit to manage her blood pressure. She has been on blood pressure medication and reports feeling okay with no significant issues at home, although her blood pressure was occasionally high. Her current medications include furosemide 80 mg and metoprolol 100 mg, which she has taken today. During the visit, her blood pressure was initially recorded at 154/67 mmHg, but after a brief rest, it improved to 140/63 mmHg, which is within the desired range. The patient has received referrals for pulmonology and a bone scan, which are scheduled alongside her mammogram. The patient discussed the issue of obtaining Zepbound, which was not covered by her insurance for weight loss, and the alternative of trying metformin was considered. She was informed about the potential side effect of diarrhea with metformin, and the extended-release form was chosen to minimize gastrointestinal discomfort. [facility] Medical History Full code status Osteoarthritis History of mammogram (~05/17/24) Mass of right axilla H/O dysmenorrhea Uterine cancer Cervical erosion GERD (gastroesophageal reflux disease) Vertigo Menopause Fibromyalgia Depression History of colitis Superficial thrombophlebitis Venous insufficiency Varicose veins of both lower extremities Decreased hearing Pure hypercholesterolemia, unspecified Hypertension Prediabetes Hyperlipidemia Morbid obesity with body mass index (BMI) of 40.0 to 44.9 in adult Hoarseness Establishing care with new doctor, encounter for Chronic cough Bronchospasm Surgical History History of colonoscopy (~10/19/18) Family History Father BP (high blood pressure) High cholesterol Heart disease Mother Osteosarcoma Social History Housing: House Alcohol intake: current Alcohol intake frequency: a few times a month Patient Tobacco Use Status: Never used Tobacco service: No Current occupational status: retired Cognitive needs: Yes (cane) Hearing needs: No Vision needs: Yes (reading glasses) Questionnaire PHQ-9 Over the last 2 weeks, how often have you been bothered by any of the following problems? 1. Little interest or pleasure in doing things: not at all 2. Feeling down, depressed, or hopeless: not at all 3. Trouble falling or staying asleep, or sleeping too much: not at all 4. Feeling tired or having little energy: not at all 5. Poor appetite or overeating: not at all 6. Feeling bad about yourself - or that you are a failure or have let yourself or your family down: not at all 7. Trouble concentrating on things, such as reading the newspaper or watching television: not at all 8. Moving or speaking so slowly that other people could have noticed. Or the opposite - being so fidgety or restless that you have been moving around a lot more than usual: not at all 9. Thoughts that you would be better off or of hurting yourself in some way: not at all Total score: 0 Depression Screening Interpretation: Negative Depression Screening Done: Yes 74173 - PHQ-9 Billing: Yes Source: Developed by Drs. Tyshawn Jacques, Zenaida Miramontes, Emil Groves and colleagues, with an educational shahid from [email or web address]. Thrive Questionnaire Date Thrive assessed: 11/29/24 I am a: Patient What is your living situation today?: I have a steady place to live Within the past 12 months, did the food you bought not last and you didn't have the money to get more?: Never true Within the past 12 months, did you worry whether your food would run out before you got money to buy more?: Never true Do you have trouble paying for medicines?: No Do you have trouble getting transportation to medical appointments?: No Do you have trouble paying your heating and electricity bill?: No Do you have trouble taking care of your child, family member or friend?: No Do you have trouble with day-to-day activities such as bathing, preparing meals, shopping, managing finances, etc.?: No Are you currently unemployed and looking for a job?: No Are you interested in more education?: No Please select the resources that you would like help with: None THRIVE Score: 0 AUDIT C Alcohol Use Questionnaire (AUDIT-C) 1. How often do you have a drink containing alcohol?: 2-4 times a month 2. How many drinks containing alcohol do you have on a typical day when you are drinking?: 1 or 2 3. How often do you have six or more drinks on one occasion?: Never Total Score: 2 Score Reviewed/Action Taken: No MARCO A-7 AMB Questionnaire MARCO A-7 Date MARCO A - 7 assessed: 11/29/24 Feeling nervous, anxious, or on edge: 0 = Not at all Not being able to stop or control worryin = Not at all Worrying too much about different things: 0 = Not at all Trouble relaxin = Not at all Being so restless that it is hard to sit still: 0 = Not at all Becoming easily annoyed or irritable: 0 = Not at all Feeling afraid as if something awful might happen: 0 = Not at all Total MARCO A-7 score (0-4 normal; 5-9 mild; 10-14 moderate; 15-21 severe): 0 Source: Developed by Drs. Tyshawn Jacques, Zenaida Miramontes, Emil Groves and colleagues, with an educational shahid from [email or web address]. MARCO A-7 Assessment Billing MARCO A-7 Assessment Tool: MARCO A-7 Assessment 31100 Review of Systems Const Details: - Cardiovascular: Reports occasional high blood pressure readings at home. Denies chest pain or palpitations. Physical exam (Primary Care) Vital Signs: Last Vital Signs Temp 97.3 F 12/11/24 10:27 Pulse 60 12/11/24 10:27 Resp 16 12/11/24 10:27 BP 154/67 H 12/11/24 10:27 Pulse Ox 98 12/11/24 10:27 Oxygen Delivery Method Room Air 12/11/24 10:27 Care Plan Goal for BP management: <140/90 at Goal BMI result Body Mass Index 39.8 BMI Assessment/Plan discussion: High (Patient was not approve her Zepbound therefore will start patient on metformin for weight loss) BMI High, discussed plan: lifestyle, weight reduction, dietary, physical activity and alcohol moderation Tobacco/Smoking Status: Tobacco use Status Tobacco use date assessed 12/11/24 12/11/24 10:35 Patient Tobacco Use Status Never used Tobacco 12/11/24 10:35 PHQ-9: PHQ-9 Score PHQ-9: Total score 0 12/11/24 10:35 Depression Screening Interpretation: Negative Thrive Assessment: Date of Thrive Assessment Date Thrive assessed 11/29/24 12/11/24 10:35 Const Other: Appearance: Alert. Oriented X3. No acute distress. Head: Normal external exam. Normocephalic. Atraumatic. Eyes: Pupils are equal, round, and reactive to light. Extraocular movements intact. Conjunctiva and sclera normal. Eyelids normal. Throat: Pharynx normal. Uvula midline. Moist mucous membranes. Neck: Normal inspection. Neck supple. Full range of motion Cardiovascular: Blood pressure recorded at 140/63. Normal heart rate and rhythm. Respiratory: No respiratory distress. Painless inspiration. Back: Full range of motion noted. Skin: Skin warm and dry. Normal skin color. Normal skin turgor. No rashes/lesions/lacerations noted. Extremities: Extremities exhibit normal range of motion. Extremities nontender. Neuro: Oriented X 3. No motor deficit. No sensory deficit. Reflexes normal. Coding Level of Care Code Est Pt Level 4 (41235) Complex EM visit Add On G2211 Diagnoses Hypertension I10 Prediabetes R73.03 Morbid obesity with body mass index (BMI) of 40.0 to 44.9 in adult E66.01; Z68.41 Additional Codes MARCO A-7 Assessment Billing - MARCO A-7 Assessment Tool: MARCO A-7 Assessment 77912 ([id number]) PHQ-9 - 54086 - PHQ-9 Billing: Yes ([id number]) Assessment & Plan Assessment & Plan (1) Hypertension: Code(s): I10 - Essential (primary) hypertension Category: Medical Plan: The patient's blood pressure is being managed with furosemide 80 mg and metoprolol 100 mg, which she is taking as prescribed. Her blood pressure was initially high at 154/67 mmHg but improved to 140/63 mmHg after rest, which is within the target range. A follow-up in six months is planned to monitor her blood pressure control. Condition is chronic and stable continue to monitor. (2) Prediabetes: Code(s): R73.03 - Prediabetes Category: Medical Plan: Patient will be started on metformin 500 mg extended release for obesity/prediabetes. Condition is chronic and stable continue to monitor. (3) Morbid obesity with body mass index (BMI) of 40.0 to 44.9 in adult: Code(s): E66.01 - Morbid (severe) obesity due to excess calories; Z68.41 - Body mass index [BMI] 40.0-44.9, adult Category: Medical Plan: Patient will be started on metformin 500 mg extended release for obesity/prediabetes. Condition is chronic and stable continue to monitor. Plan Plan Patient was informed and verbally consented to the use of an ambient scribe for clinic note documentation during this visit. 1. Essential Hypertension The patient's blood pressure is being managed with furosemide 80 mg and metoprolol 100 mg, which she is taking as prescribed. Her blood pressure was initially high at 154/67 mmHg but improved to 140/63 mmHg after rest, which is within the target range. A follow-up in six months is planned to monitor her blood pressure control. 2. Preventative Care The patient has been referred for a pulmonology consultation and a bone scan, which are scheduled alongside her mammogram. During the visit, we discussed the management of the patient's blood pressure, which is currently controlled with furosemide and metoprolol. We also addressed the issue of obtaining Zepbound, which was not covered by insurance, and decided to try metformin as an alternative. The patient was informed about the potential side effects of metformin, including diarrhea, and the extended- release form was chosen to minimize discomfort. Preventative care measures were also discussed, including referrals for pulmonology and a bone scan, which are scheduled alongside her mammogram. A follow-up appointment is planned in six months to reassess her blood pressure management. Medications: New metformin ER 500 mg PO DAILY 90 tabs 1RF Discontinued tirzepatide (weight loss) (Zepbound) for 4 weeks Discontinued Reason: Doctor's Order 2.5 mg (0.5 mL) subcut QWEEK 2 mL 0RF E66.01 - Morbid (severe) obesity due to excess calories, E78.5 - Hyperlipidemia, unspecified, I10 - Essential (primary) hypertension, R73.03 - Prediabetes, Z68.41 - Body mass index [BMI] 40.0-44.9, adult tirzepatide (weight loss) (Zepbound) for 4 weeks. Please prescribe the autoinjector/pen. Discontinued Reason: Duplicate 2.5 mg (0.5 mL) subcut QWEEK 2 mL 0RF E66.01 - Morbid (severe) obesity due to excess calories, E78.00 - Pure hypercholesterolemia, unspecified, E78.5 - Hyperlipidemia, unspecified, I10 - Essential (primary) hypertension, M19.90 - Unspecified osteoarthritis, unspecified site, M79.7 - Fibromyalgia, R73.03 - Prediabetes, Z68.41 - Body mass index [BMI] 40.0-44.9, adult Patient Instructions: - Continue taking furosemide 80 mg and metoprolol 100 mg as prescribed. - Start metformin as discussed, and monitor for any side effects such as diarrhea. - Attend scheduled appointments for pulmonology, bone scan, and mammogram. - Follow up in six months to reassess blood pressure management.
[2024-12-11 10:27] VITALS: BP 140/63; PULSE 60; RESP 16; TEMP 36.3; O2SAT 98; BMI 39.8
== END 2024-12-11 10:55 | disposition home or self-care (01) ==
LOC: HO.HMCSH 10:28
PROVIDERS: PCP Physician Assistant Medical; Visit Provider Physician Assistant Medical
DX: I10 Essential (primary) hypertension (principal); R73.03 Prediabetes; E66.01 Morbid (severe) obesity due to excess calories; Z68.41 Body mass index [BMI] 40.0-44.9, adult

== ENCOUNTER → 2024-12-11 10:28 | Outpatient (BNVA) | payer MEDICARE, SELFPAY | PROVIDERS: PCP Physician Assistant Medical; Visit Provider Physician Assistant Medical | DX: I10 Essential (primary) hypertension (principal); R73.03 Prediabetes; E66.01 Morbid (severe) obesity due to excess calories; Z68.41 Body mass index [BMI] 40.0-44.9, adult; Z71.3 Dietary counseling and surveillance | CPT/HCPCS: 96127; 99212 ==

== ENCOUNTER 2025-01-22 15:07 | Outpatient (AMB) | payer MEDICARE, SELFPAY ==
[2025-01-22 15:09] VITALS: BP 134/88; PULSE 73; O2SAT 98; BMI 39.4
--- NOTE | 2025-01-22 15:09 | MHC.OFFVIS ---
Vital Signs 01/22/25 15:09 Height 5 ft Weight 201 lb 11.567 oz BMI 39.4 BP 134/88 Blood Pressure Location Rt brachial Position Sitting Pulse 73 Pulse Source Pulse Oximeter Pulse Oximetry (%) 98 Oxygen Delivery Method Room Air Intake Visit Reasons: Acute bronchospasm/ Cough/ Dysphonia Allergies acetaminophen (Fioricet) Allergy (Unknown, Verified 01/22/25 15:13) Unknown butalbital (Fioricet) Allergy (Unknown, Verified 01/22/25 15:13) Unknown caffeine (Fioricet) Allergy (Unknown, Verified 01/22/25 15:13) Unknown hydrochlorothiazide Allergy (Unknown, Verified 01/22/25 15:13) Unknown oxycodone (Percocet) Allergy (Unknown, Verified 01/22/25 15:13) Unknown penicillin V Allergy (Unknown, Verified 01/22/25 15:13) Unknown Sulfa (Sulfonamide Antibiotics) Allergy (Unknown, Verified 01/22/25 15:13) Unknown Bactrim Allergy (Unknown, Uncoded 01/22/25 15:13) Unknown Penicillin Allergy (Unknown, Uncoded 01/22/25 15:13) Unknown Pt states no known food allerg Allergy (Unknown, Uncoded 01/22/25 15:13) Unknown HPI HPI Acute bronchospasm/ Cough/ Dysphonia: Details: Shayla is a pleasant 74-year-old female, with underlying asthma, hypertension, GERD, hyperlipidemia and history of uterine cancer. She was referred by PCP for pulmonary evaluation. She has been suboptimally controlled on Trelegy 200 mcg continuing with bronchospasms and dry cough, however notable improvement since initiating. Initially symptoms were attributed to allergies, previously under the care of an business representative. The patient has a history of environmental allergies, including dust mites, grass, and certain trees, confirmed through allergy testing. She has been advised against allergy shots as they may not significantly impact her symptoms. She also uses Flonase and occasionally Zyrtec for her allergic rhinitis. PFT 2022 unremarkable. CXR 2022 unremarkable, no further testing. The cough has persisted for three to four years. The cough is more pronounced at night and is dry in nature. The patient also reports hoarseness, which has been consistent over time, with some days being worse than others. The patient denies any history of smoking but had exposure to secondhand smoke. The patient is currently on pantoprazole for reflux, which may contribute to her symptoms of hoarseness and cough. She reports asthma was diagnosed as an adult, not requiring intubations. She denies any hospitalizations related to respiratory distress. She denies any pertinent family history. [facility] Medical History Full code status Osteoarthritis History of mammogram (~05/17/24) Mass of right axilla H/O dysmenorrhea Uterine cancer Cervical erosion GERD (gastroesophageal reflux disease) Vertigo Menopause Fibromyalgia Depression History of colitis Superficial thrombophlebitis Venous insufficiency Varicose veins of both lower extremities Decreased hearing Pure hypercholesterolemia, unspecified Hypertension Prediabetes Hyperlipidemia Morbid obesity with body mass index (BMI) of 40.0 to 44.9 in adult Hoarseness Establishing care with new doctor, encounter for Chronic cough Bronchospasm Surgical History History of colonoscopy (~10/19/18) Family History Father BP (high blood pressure) High cholesterol Heart disease Mother Osteosarcoma Social History Housing: House Alcohol intake: current Alcohol intake frequency: a few times a month Patient Tobacco Use Status: Never used Tobacco service: No Current occupational status: retired Cognitive needs: Yes (cane) Hearing needs: No Vision needs: Yes (reading glasses) Review of Systems Const Denies chills, Denies excessive sweating, Denies fever(s), Denies headache(s) and Denies night sweats Eyes Denies dry eyes, Denies irritation and Denies itchy eyes ENT Reports Normal hearing present, Denies headache(s), Denies nasal congestion, Denies nasal discharge, Denies post nasal drip and Denies sore throat Card Denies chest pain, Denies chest pain at rest, Denies chest pain with activity, Denies claudication, Denies leg edema, Denies dyspnea, Denies dyspnea on exertion, Denies orthopnea and Denies paroxysmal nocturnal dyspnea Resp Denies chest congestion, Denies excessive phlegm production, Denies pain on inspiration, Denies pain with cough, Denies dyspnea, Denies dyspnea on exertion, Denies stridor and Denies wheezing Musc Denies myalgias Neuro Reports Normal hearing present and Denies headache(s) Endo Denies excessive sweating Grupo/Lymph Denies lymphadenopathy Aller/Immun Denies itchy eyes, Denies seasonal rhinorrhea and Denies wheezing Physical Exam Vital Signs: Last Vital Signs Pulse 73 01/22/25 15:09 BP 134/88 01/22/25 15:09 Pulse Ox 98 01/22/25 15:09 Oxygen Delivery Method Room Air 01/22/25 15:09 BMI result Body Mass Index 39.4 Const General: cooperative, healthy appearing, comfortable, no acute distress, well developed and alert Nutritional Appearance: obese Orientation/consciousness: patient oriented x3 Limitations: no limitations HEENT Head: Yes normal to inspection, Yes normocephalic and Yes atraumatic Ears: hearing grossly normal bilaterally and external ears normal Eyes General: appearance normal, both eyes and all related structures Eyelids: Yes eyelids normal Sclerae: sclerae normal EOM: EOMs intact bilaterally Neck Neck: Yes normal visual inspection and Yes no lymphadenopathy Lymphatic: no lymphadenopathy noted Chest Chest palpation & inspection: normal inspection of the chest Resp Effort & Inspection: normal respiratory effort, able to speak in complete sentences, no audible wheezes, no cough, no stridor, not tachypneic, no tripod positioning and no use of accessory muscles Auscultation: clear to auscultation bilaterally Cardio Jugular venous distension: no JVD Rate: regular rate Rhythm: regular rhythm Skin Other: warm, dry General skin exam: no rashes or lesions noted Neuro General: patient oriented x3 Cranial nerves: Yes Normal hearing present Cognition (Neuro): normal cognition Gait exam (Neuro): Normal gait present Extrem General: Yes normal to inspection, Yes capillary refill normal, Yes no clubbing, cyanosis or edema and Yes no pedal edema Psych Appearance: grossly normal and well kempt Speech and movement: Normal speech and movement present and Clear speech present Affect: normal affect Attitude: cooperative Thought process: Normal thought process present Thought content: Normal thought content present Insight: Good insight present (Psych) Judgement: Good judgement present (Psych) Assessment & Plan Assessment & Plan (1) Chronic cough: Code(s): R05.3 - Chronic cough Category: Medical Plan Shayla presents for pulmonary evaluation for chronic cough that has persisted for the last 3-4 years. Prior PFT and CXR unremarkable. Will send for CT chest to evaluate for underlying parenchymal condition contributing to symptoms. The patient will continue using Trelegy and start ipratropium nasal spray to address postnasal drip. Consideration will be given to silent reflux as a contributing factor if the CT scan and pulmonary function tests are normal, with potential referral to a tank truck mechanic or ENT specialist for further evaluation. All questions were answered and patient is in agreement of plan. Will follow up to review CT results or sooner if needed. Orders: Orders CT chest wo IV con Today R05.3 - Chronic cough Medications: New ipratropium bromide administer into each nostril 2 sprays intranasal BID 30 mL 3RF Coding Level of Care Code New Pt Level 4 (48435) Diagnoses Chronic cough R05.3
== END 2025-01-22 15:36 | disposition home or self-care (01) ==
LOC: HO.HPS 15:07
PROVIDERS: PCP Physician Assistant Medical; Referring Provider Physician Assistant Medical; Visit Provider Nurse Practitioner Family
DX: R05.3 Chronic cough (principal)
CPT/HCPCS: 99204

== ENCOUNTER → 2025-01-22 15:07 | Outpatient (BNVA) | payer MEDICARE, SELFPAY | PROVIDERS: PCP Physician Assistant Medical; Referring Provider Physician Assistant Medical; Visit Provider Nurse Practitioner Family | DX: R05.3 Chronic cough (principal) | CPT/HCPCS: 99202 ==

== ENCOUNTER 2025-02-14 07:12 | Outpatient (REF) | payer MEDICARE, SELFPAY ==
--- NOTE | ~2025-02-14 | CT_ITS ---
EXAMINATION: CT CHEST WITHOUT CONTRAST CLINICAL INFORMATION: Chronic cough COMPARISON: Correlated to chest x-ray dated February 05, 2023 TECHNIQUE: Multidetector volumetric CT imaging of the chest was done. Axial MIP volume rendering provided. Sagittal and coronal reformatted images were obtained. This CT examination was performed using dose optimization techniques as appropriate, variously including the following: *Automated exposure control *Adjustment of mA and/or kV according to patient size (this includes techniques or standardized protocols for targeted exams where dose is matched to indication/reason for exam; i.e. extremities or head) *Use of iterative reconstruction technique. DLP: 424 mGy centimeter. FINDINGS: REVENUE OFFICER: Patient's large body habitus. Multilevel spondylosis, thoracolumbar spine. Cardiomediastinal silhouette size is normal. LUNGS: Peripheral honeycombing in the medial lung bases. No gross pulmonary nodules. Patchy groundglass and linear attenuation abnormalities in the right middle lung lobe and lingula. Respiratory airways is patent. No gross consolidation. No gross bronchiectasis. MEDIASTINUM: Mild prominent lymph nodes in the mediastinum. Calcified plaques in the thoracic aorta wall and its main branches. No aneurysm, thoracic aorta. Calcified plaques in the coronary arteries. Calcified plaques in the aortic valve and mitral valve. No pericardial effusion. No pneumomediastinum. No hemopericardium. Heart is not enlarged. CORONARY ARTERY CALCIFICATION: Calcified plaques. PLEURA: No pleural effusion. No pneumothorax. No calcified pleural plaques. No hemothorax. AXILLA: No lymphadenopathy. UPPER ABDOMEN: Status post cholecystectomy. Calcified plaques in the abdominal aorta wall and the origin of the right main renal artery. Small accessory spleen. Calcified plaque in the origin of the celiac trunk. The thyroid gland is not enlarged. OSSEOUS STRUCTURES: Multilevel syndesmophyte formation and marginal osteophyte formation in a sequential fashion from T5 to T11 with preservation of the intervertebral disc height. No acute fracture or listhesis in the axial skeleton. No lytic or blastic lesions. No acute rib fracture. Scapula are intact. CT/CT chest wo IV con IMPRESSION: No acute airspace disease. Chronic interstitial lung disease. Coronary artery disease and atherosclerosis disease. Consider DISH, thoracic spine. Fleischner guidelines were followed. Electronically signed by: Giles Linder MD 02/14/2025 08:04 AM EDT
== END 2025-02-14 07:13 | disposition home or self-care (01) ==
LOC: HO.CT 07:12
PROVIDERS: PCP Physician Assistant Medical; Visit Provider Nurse Practitioner Family
DX: R05.3 Chronic cough (principal)
CPT/HCPCS: 71250

== ENCOUNTER → 2025-02-14 07:14 | Outpatient (BNV) | payer MEDICARE, SELFPAY | PROVIDERS: PCP Physician Assistant Medical; Visit Provider Radiology Diagnostic Radiology | DX: J84.9 Interstitial pulmonary disease, unspecified (principal) | CPT/HCPCS: 71250 ==

== ENCOUNTER 2025-03-12 12:55 | Outpatient (REF) | payer MEDICARE, SELFPAY ==
[2025-03-12 13:53] LABS: MANUAL DIFF FLAG NO
[2025-03-12 14:24] LABS: Hematocrit 42.0 % (37.0-47.0); Hemoglobin 13.9 g/dl (12.0-16.0); Imm Gran Abs Auto 0.02 X10*3/uL (0.00-0.03); Imm Gran Pct Auto 0.3 % (0.0-0.4); Lymphocytes Absolute Auto 1.8 X10*3/uL (1.2-4.9); Mean Corpuscular HGB Conc 33.1 g/dl (31.0-35.0); Mean Corpuscular Hemoglobin 29.3 pg (27.0-33.0); Mean Corpuscular Volume 88.4 fL (80.0-98.0); NRBC Abs Auto 0.000 X10*3/uL (0.0-0.012); NRBC Pct Auto 0.0 /100WBC (0.0-0.2); Platelet Count 237 X10*3/uL (160-400); Red Blood Count 4.75 X10*6/uL (4.20-5.50); White Blood Count 6.7 X10*3/uL (4.8-10.8)
[2025-03-13 21:59] LABS: Antibody to SS-A Antigen <1.0 NEG AI (<1.0 NEG); Antibody to SS-B Antigen <1.0 NEG AI (<1.0 NEG)
[2025-03-14 10:53] LABS: Anti Nuclear Antibody Screen NEGATIVE (NEGATIVE)
[2025-03-14 14:09] LABS: Class Alternaria alternata 0; Class Aspergillus fumigatus 0; Class Bermuda Grass 0; Class Birch 0; Class Cat Dander 0; Class Cladosporium herbarum 0; Class Cockroach 0; Class Common Ragweed 0; Class Cottonwood 0; Class Derm. pterony 0; Class Dermatophagoides farinae 0; Class Dog Dander 0; Class Elm 0; Class Maple Box Elder 0; Class Mountain Cedar 0; Class Mouse Urine Protein 0; Class Mugwort 0; Class Oak 0; Class Penicillium crysogenum 0; Class Rough Pigweed 0; Class Sheep Sorrel 0; Class Sycamore 0; Class Timothy Grass 0; Class Walnut Tree 0; Class White Ash 0; Class White Mulberry 0; D002 - IgE D farinae <0.10 kU/L; E001 - IgE Cat Dander <0.10 kU/L; E005 - IgE Dog Dander <0.10 kU/L; G006 - IgE Timothy Grass <0.10 kU/L; I006-IgE Cockroach, German <0.10 kU/L; M002 - IgE Cladosporium herbar <0.10 kU/L; M003 - IgE Aspergillus fumigat <0.10 kU/L; M006 - IgE Alternaria alternat <0.10 kU/L; T001 IgE Maple/Box Elder <0.10 kU/L; T006 - IgE Cedar, Mountain <0.10 kU/L; T007 - IgE Oak, White <0.10 kU/L; T008 IgE Elm, American <0.10 kU/L; T010 - IgE Walnut <0.10 kU/L; T011 - IgE Maple Leaf Sycamore <0.10 kU/L; T014 - IgE Cottonwood <0.10 kU/L; T015 - IgE Ash, White <0.10 kU/L; T070 - IgE White Mulberry <0.10 kU/L; W001 - IgE Ragweed, Short <0.10 kU/L; W006 - IgE Mugwort <0.10 kU/L; W014 IgE Pigweed, Common <0.10 kU/L; W018 IgE Sheep Sorrel <0.10 kU/L
== END 2025-03-12 12:56 | disposition home or self-care (01) ==
LOC: HO.LAB 12:55
PROVIDERS: PCP Physician Assistant Medical; Visit Provider Nurse Practitioner Family
DX: R05.3 Chronic cough (principal); R91.8 Other nonspecific abnormal finding of lung field; Z91.09 Other allergy status, other than to drugs and biological substances; M25.50 Pain in unspecified joint
CPT/HCPCS: 36415; 82785; 85025; 86003; 86038; 86200; 86225; 86235; 86431; 99212

== ENCOUNTER 2025-03-12 12:55 | Outpatient (AMB) | payer MEDICARE, SELFPAY ==
--- NOTE | 2025-03-12 13:01 | A.OFFVIS_ITS ---
Vital Signs 03/12/25 13:09 Height 5 ft Weight 203 lb 14.841 oz BMI 39.8 BP 156/88 H Blood Pressure Location Rt brachial Position Sitting Pulse 63 Pulse Source Pulse Oximeter Pulse Oximetry (%) 97 Oxygen Delivery Method Room Air Intake Visit Reasons: Acute bronchospasm/ Cough/ Dysphonia Allergies acetaminophen (Fioricet) Allergy (Unknown, Verified 03/12/25 13:12) Unknown butalbital (Fioricet) Allergy (Unknown, Verified 03/12/25 13:12) Unknown caffeine (Fioricet) Allergy (Unknown, Verified 03/12/25 13:12) Unknown hydrochlorothiazide Allergy (Unknown, Verified 03/12/25 13:12) Unknown oxycodone (Percocet) Allergy (Unknown, Verified 03/12/25 13:12) Unknown penicillin V Allergy (Unknown, Verified 03/12/25 13:12) Unknown Sulfa (Sulfonamide Antibiotics) Allergy (Unknown, Verified 03/12/25 13:12) Unknown Bactrim Allergy (Unknown, Uncoded 03/12/25 13:12) Unknown Penicillin Allergy (Unknown, Uncoded 03/12/25 13:12) Unknown Pt states no known food allerg Allergy (Unknown, Uncoded 03/12/25 13:12) Unknown HPI HPI Acute bronchospasm/ Cough/ Dysphonia: Details: Shayla is a pleasant 74-year-old female, never smoker, with underlying asthma, hypertension, GERD, hyperlipidemia and history of uterine cancer. The patient reports a persistent cough, which worsens after meals, and has been using Trelegy for about a year and a half with some improvement in symptoms. The patient has a history of gastroesophageal reflux disease, which may contribute to the cough, especially noting exacerbation after meals. She is on reflux medication, which initially helped, but the cough persists, particularly after supper. Family history includes a daughter with lupus, raising the possibility of an autoimmune condition contributing to the patient's symptoms. She denies prior h/o CTD however reports a history of fibromyalgia, diagnosed by Dr. Burgos, with joint pain that can occur anywhere in the body. Additionally, she experiences seasonal allergies with postnasal drip, for which she uses a nasal spray that has reduced symptoms. [facility] Medical History Full code status Osteoarthritis History of mammogram (~05/17/24) Mass of right axilla H/O dysmenorrhea Uterine cancer Cervical erosion GERD (gastroesophageal reflux disease) Vertigo Menopause Fibromyalgia Depression History of colitis Superficial thrombophlebitis Venous insufficiency Varicose veins of both lower extremities Decreased hearing Pure hypercholesterolemia, unspecified Hypertension Prediabetes Hyperlipidemia Morbid obesity with body mass index (BMI) of 40.0 to 44.9 in adult Hoarseness Establishing care with new doctor, encounter for Chronic cough Bronchospasm Surgical History History of colonoscopy (~10/19/18) Family History Father BP (high blood pressure) High cholesterol Heart disease Mother Osteosarcoma Social History Housing: House Alcohol intake: current Alcohol intake frequency: a few times a month Patient Tobacco Use Status: Never used Tobacco service: No Current occupational status: retired Cognitive needs: Yes (cane) Hearing needs: No Vision needs: Yes (reading glasses) Review of Systems Const Denies chills, Denies excessive sweating, Denies fever(s), Denies headache(s) and Denies night sweats Eyes Denies dry eyes, Denies irritation and Denies itchy eyes ENT Reports Normal hearing present, Denies headache(s), Denies nasal congestion, Denies nasal discharge, Reports post nasal drip and Denies sore throat Card Denies chest pain, Denies chest pain at rest, Denies chest pain with activity, Denies claudication, Denies leg edema, Denies dyspnea, Denies dyspnea on exertion, Denies orthopnea and Denies paroxysmal nocturnal dyspnea Resp Denies chest congestion, Denies excessive phlegm production, Denies pain on inspiration, Denies pain with cough, Denies dyspnea, Denies dyspnea on exertion, Denies stridor and Denies wheezing Musc Denies myalgias Neuro Reports Normal hearing present and Denies headache(s) Endo Denies excessive sweating Grupo/Lymph Denies lymphadenopathy Aller/Immun Denies itchy eyes, Denies seasonal rhinorrhea and Denies wheezing Physical Exam Vital Signs: Last Vital Signs Pulse 63 03/12/25 13:09 BP 156/88 H 03/12/25 13:09 Pulse Ox 97 03/12/25 13:09 Oxygen Delivery Method Room Air 03/12/25 13:09 BMI result Body Mass Index 39.8 Const General: cooperative, healthy appearing, comfortable, no acute distress, well developed and alert Nutritional Appearance: obese Orientation/consciousness: patient oriented x3 Limitations: no limitations HEENT Head: Yes normal to inspection, Yes normocephalic and Yes atraumatic Ears: hearing grossly normal bilaterally and external ears normal Eyes General: appearance normal, both eyes and all related structures Eyelids: Yes eyelids normal Sclerae: sclerae normal EOM: EOMs intact bilaterally Neck Neck: Yes normal visual inspection and Yes no lymphadenopathy Lymphatic: no lymphadenopathy noted Chest Chest palpation & inspection: normal inspection of the chest Resp Effort & Inspection: normal respiratory effort, able to speak in complete sentences, no audible wheezes, no cough, no stridor, not tachypneic, no tripod positioning and no use of accessory muscles Auscultation: clear to auscultation bilaterally Cardio Jugular venous distension: no JVD Rate: regular rate Rhythm: regular rhythm Skin Other: warm, dry General skin exam: no rashes or lesions noted Neuro General: patient oriented x3 Cranial nerves: Yes Normal hearing present Cognition (Neuro): normal cognition Gait exam (Neuro): Normal gait present Extrem General: Yes normal to inspection, Yes capillary refill normal, Yes no clubbing, cyanosis or edema and Yes no pedal edema Psych Appearance: grossly normal and well kempt Speech and movement: Normal speech and movement present and Clear speech present Affect: normal affect Attitude: cooperative Thought process: Normal thought process present Thought content: Normal thought content present Insight: Good insight present (Psych) Judgement: Good judgement present (Psych) Results Reviewed Results Reviewed: [address] [address] [address] Scan Report Signed Patient: Shayla Paz MR#: [id number] : 1950 Acct:[id number] Age/Sex: 74 / F ADM Date: 02/14/25 Loc: HO.CT Attending Dr: Farhana Christine NP Ordering Physician: Farhana Christine NP Date of Service: 02/14/25 Procedure(s): CT chest wo IV con Accession Number(s): [id number] cc: Penelope Riley PA-C; Farhana Christine NP~ Report Number: [id number]: Total DLP = 424.00 mGy-cm EXAMINATION: CT CHEST WITHOUT CONTRAST CLINICAL INFORMATION: Chronic cough COMPARISON: Correlated to chest x-ray dated February 05, 2023 TECHNIQUE: Multidetector volumetric CT imaging of the chest was done. Axial MIP volume rendering provided. Sagittal and coronal reformatted images were obtained. This CT examination was performed using dose optimization techniques as appropriate, variously including the following: *Automated exposure control *Adjustment of mA and/or kV according to patient size (this includes techniques or standardized protocols for targeted exams where dose is matched to indication/reason for exam; i.e. extremities or head) *Use of iterative reconstruction technique. DLP: 424 mGy centimeter. FINDINGS: CERTIFIED CREDIT COUNSELOR: Patient's large body habitus. Multilevel spondylosis, thoracolumbar spine. Cardiomediastinal silhouette size is normal. LUNGS: Peripheral honeycombing in the medial lung bases. No gross pulmonary nodules. Patchy groundglass and linear attenuation abnormalities in the right middle lung lobe and lingula. Respiratory airways is patent. No gross consolidation. No gross bronchiectasis. MEDIASTINUM: Mild prominent lymph nodes in the mediastinum. Calcified plaques in the thoracic aorta wall and its main branches. No aneurysm, thoracic aorta. Calcified plaques in the coronary arteries. Calcified plaques in the aortic valve and mitral valve. No pericardial effusion. No pneumomediastinum. No hemopericardium. Heart is not enlarged. CORONARY ARTERY CALCIFICATION: Calcified plaques. PLEURA: No pleural effusion. No pneumothorax. No calcified pleural plaques. No hemothorax. AXILLA: No lymphadenopathy. UPPER ABDOMEN: Status post cholecystectomy. Calcified plaques in the abdominal aorta wall and the origin of the right main renal artery. Small accessory spleen. Calcified plaque in the origin of the celiac trunk. The thyroid gland is not enlarged. OSSEOUS STRUCTURES: Multilevel syndesmophyte formation and marginal osteophyte formation in a sequential fashion from T5 to T11 with preservation of the intervertebral disc height. No acute fracture or listhesis in the axial skeleton. No lytic or blastic lesions. No acute rib fracture. Scapula are intact. CT/CT chest wo IV con IMPRESSION: No acute airspace disease. Chronic interstitial lung disease. Coronary artery disease and atherosclerosis disease. Consider DISH, thoracic spine. Fleischner guidelines were followed. 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 Discussed with the patient the findings of the recent CT chest, which showed mild bibasilar inflammatory changes suggestive of interstitial lung disease. We reviewed the potential causes, including autoi mmune conditions or aspiration related to gastroesophageal reflux disease, and the plan to conduct further testing to explore these possibilities including CTD workup and RAST. Will trial a 5 day course of prednisone to assess effects on cough. Explained the use of prednisone to assess its impact on the cough and emphasized the importance of completing blood work before starting the medication.The patient was informed about the potential side effects of prednisone and the need to monitor symptoms and blood pressure during its use. Will repeat PFT as prior from 2022. We also discussed the management of seasonal allergies and the continuation of current medications, including Trelegy and nasal spray. All questions were answered and patient is in agreement of plan. Will follow up to review results or sooner if needed. Orders: Orders MIRELLA Reflex Titer and Pattern Today M25.50 - Pain in unspecified joint Rheumatoid Factor Today M25.50 - Pain in unspecified joint Scleroderma 70 Antibody Today M25.50 - Pain in unspecified joint Anti DNA DS Antibody Today M25.50 - Pain in unspecified joint PFT pulmonary function test Today R05.3 - Chronic cough Sjogren's Antibodies Today M25.50 - Pain in unspecified joint Cyclic Citrullinated Peptide Today M25.50 - Pain in unspecified joint Resp Allergy Profile Region I Today Z91.09 - Other allergy status, other than to drugs and biological substances Immunoglobulin E Today Z91.09 - Other allergy status, other than to drugs and biological substances Complete Blood Count Auto Diff Today Z91.09 - Other allergy status, other than to drugs and biological substances Medications: New prednisone 40 mg (2 x 20 mg) PO DAILY 10 tabs 0RF Coding Level of Care Code Est Pt Level 4 (83131) Complex EM visit Add On G2211 Diagnoses Chronic cough R05.3 Ground glass opacity present on imaging of lung R91.8
[2025-03-12 13:09] VITALS: BP 156/88; PULSE 63; O2SAT 97; BMI 39.8
== END 2025-03-12 13:40 | disposition home or self-care (01) ==
LOC: HO.HPS 12:55
PROVIDERS: PCP Physician Assistant Medical; Visit Provider Nurse Practitioner Family
DX: R05.3 Chronic cough (principal); R91.8 Other nonspecific abnormal finding of lung field
CPT/HCPCS: 99214; G2211

== ENCOUNTER 2025-05-11 13:00 | Outpatient (REF) | payer MEDICARE, SELFPAY ==
--- OUTSIDE RECORDS SUMMARY | 2025-05-07 04:00 | XMS_ITS ---
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 Name Role Phone LucieVikas weaver Primary Care Provider Ivonne Bradford Unavailable [phone] Allergies Allergen (clinical drug ingredient) Drug/Non Drug Allergy documented on EMR Reaction Allergy Type Onset Date Status sulfamethoxazole / trimethoprim Bactrim rash Drug Allergy Active gentamicin Gentamicin Sulfate rash Drug Allergy Active hydrochlorothiazide Hydrochlorothiazide itch Drug Aller gy Active REASON FOR VISIT Painful nail(s) aggravated by shoes causing difficulty standing/walking Medications Medication SIG (Take, Route, Frequency, Duration) Notes Start Date End Date Status Work Note . . .This patient had foot surgery today and is disabled from work until 2013 .; Duration: . 02/28/2014 Not-Taking Motrin Not-Taking buPROPion HCl Not-Ta dorian Amoxicillin 500 MG 4 Orally Once a day; Duration: 1 dose Not-Taking Vicodin 5-500 MG 1 tablet as needed f or pain Orally every 6 hrs Not-Taki ng Simvastatin 40 MG Orally Once a day Not-Taking Asacol 40mg Not-Taki ng Lipitor 10 MG 1 tablet Orally Once a day; Duration: 30 day(s) Not-Fernando ing Norvasc 10 MG 1 tablet Orally Once a day; Duration: 30 day(s) Not-Fernando ing Work Note . . . patient had foot surgery and is disabled from work until 06/17/16 06/15/2016 Not-Fernando ing DULoxetine HCl 30 MG Orally Once a day Not-Taking Sulindac Not-Taking Apriso Not-Taking Ibuprofen PRN Not-Taking Trulicity 0.75 MG/0.5ML as directed Subc utaneous Once a week Not-Taking Furosemide 80 MG 1 tablet Orally Once a day Active Gabapentin 300 MG 1 capsule Orally Onc e a day Active Pantoprazole Sodium 40 MG 1 tablet Orally Once a day Active Toprol XL 100 MG 1 tablet Orally Once a day Active Ipratropium Mason 0.03 % 2 SPRAY INTRANASALLY 2 TIMES A DAY ADMINISTER INTO EACH NOSTRIL Nasal; Duration: 90 Days Active Trelegy Ellipta 200-62.5-25 MCG/ACT 1 puff Inhalation Once a day Active Meloxicam 15 MG 1 tablet Orally Once a day Active Atorvastatin Calcium 40 MG 1 tablet Orally Once a day Active Voltaren 1 % as directed Externally Active Aspir-81 Active metFORMIN HCl 500 MG 1 tablet with a vivian l Orally Once a day Active Immunizations Vaccine Route Administration Date Status Comme nts Influenza Unknown 05/07/2025 Refused Social History Tobacco Use: Social History Observation Description Date Details (start date - stop date) Never Smoker NA - NA Tobacco use other than smoking: Question Answer Notes Are you an other tobacco user? No Tobacco Control (Standard) Question Answer Notes Tobacco use: Nonsmoker Additional Findings: Tobacco non-user Current no nsmoker AUDIT-C (Standard) Question Answer Notes Did you have a drink containing alcohol in the p ast year? No Points 0 Interpretation Negative Vital Signs Height 5ft in 05/07/2025 Weight 200 lbs 05/07/2025 BMI 39.06 kg/m2 05/07/2025 Blood pressure systolic 140 mm Hg 05/07/20 25 Blood pressure diastolic 80 mm Hg 025 Procedures Procedure Date Ordered Date Performed Result Body Sit e 79460-MGBWJQW NAIL, 6 OR MORE 05/07/2025 N/A Encounters Encounter Location Date Provider Diagnosis [facility] [address] [address] 05/07/2025 Ivonne Bradford Pain in right toe(s) M79.674 ; Onychomycosis B35.1 and Pain in left toe(s) M79.675 Assessments Encounter Date Diagnosis (ICD Code) Assessment Notes Treatment Notes Treatment Clinical Notes Section Notes 05/07/2025 Pain in right toe(s) (ICD-10 - M79.674) 05/07/2025 Onychomycosis (ICD-10 - B35.1) 05/07/2025 Pain in left toe(s) (ICD-10 - M79.675) Plan Of Treatment Pending Test Test Name Order Date [id number] NAIL, 6 OR MORE 05/07/2025 Next Appt Details Follow Up: 3 Months, Reason: Provider Name:Ivonne Eliceo antunez, 08/20/2025 09:00:00 AM, [address] [place] [address], [id number], Procedure Notes * Category Sub-Category Detail Notes Debride Nail 6-10 Nail debridement Due to the cl inical pathology outlined in the exam findings, performance of this nail treatment is medically necessary as its management by an unskilled/untrained nonprofessional would put this patients foot and overall health at risk. Therefore, debridement to affected nail(s), as described in exam ( TA, T1, T2, T3, T4, T5, T6, T7, T8, T9, ), was performed exclusively by the physician of record to reduce/remove overall nail length, girth, thickness, subungual debris, and necrotic tissue, by manual and/or electrical means through the use of a nail nipper and/or dremel-type grinder hardboard, to a more viable healthy nail plate or bed tissue 6-10 nails in total. Silver nitrate was used for any petechial bleeding as necessary. Definitive antifungal treatment options, both pharmaceutical and surgical, have been reviewed and discussed with the patient. The patient solely prefers the use of intermittent/as needed professional debridement services for their nail condition and understands the need for additional periodic treatments to maintain effectiveness in symptomatic relief - Progress Notes * Shayla FLOREZ ADOB: [birth year] (74 yo F)Acc No.[id number]:05/07/2025 Progress Note Patient: Shayla GRAY Demetrius Provider: Natasha Bradford DPM :1950 A ge:74 Y S ex:Female Date:05/07/2025 Address:[address] [place] [address] [phone] Pcp:Vikas Faulkner Subjective: * Chief Complaints: * P ainful nail(s) aggravated by shoes causing difficulty standing/walking * HPI: P ainful Nails: Pt States Last PCP Visit: D ate: 0 01/15/2025 * ROS: G eneral/Constitutional: Nausea d enies, denies. V omiting d enies, denies.?Hunger Thirst d enies, denies. L oss appetite d enies, denies. C hills d enies, denies. F atigue d enies, denies. F ever d enies, denies. N ight Sweats denies, denies. U nexplained weight loss d enies, denies. U nexplained weight gain?denies, denies. H EENTM: Dentures d enies, denies. D izziness d enies, denies. G lasses/contacts d enies, denies. R etinopathy d enies, denies. B lurred/double vision d enies, denies. T MJ d enies, denies. D ischarge/drainage d enies, denies. I mplants d enies, denies. S ore throat d enies, denies. D ental implants?denies, denies. H diane of hearing d enies, denies. D ifficulty chewing/swallowing/speaking d enies, denies. N ose bleeds d enies, denies. S ore mouth d enies, denies. R espiratory: On Oxygen d enies, denies. P neumonia/pleurisy d enies, denies. B ronchitis d enies, denies. E mphysema d enies, denies. C oughing?denies, denies. C ough blood d enies, denies. S hortness of breath d enies, denies. W heezing d enies, denies. C ardiovascular: Pacemaker d enies, denies. M TELEMETRY REGISTERED NURSE d enies, denies.?WPW d enies, denies. C HF d enies, denies. H eart attack d enies, denies.?Septal defect d enies, denies. R apid beat d enies, denies. C hest pain d enies, denies. A trial Fib. d enies, denies. M urmur/Palpitations d enies, denies. G astrointestinal: Hemorrhoids d enies, denies. S tomach/Abdominal pain?denies, denies. D ark blood stool d enies, denies. I rritable bowel d enies, denies. C onstipation d enies, denies. D iarrhea d enies, denies. H ematology: Swelling d enies, denies. C lots d enies, denies.?Varicose Veins d enies, denies. B ruising d enies, denies. B leeding problem?denies, denies. G enitourinary: Blood urine d enies, denies. F requent/Painfu/urination/bladder control d enies, denies. K idney stones d enies, denies. I nfection (UTI)?denies, denies. N ephropathy d enies, denies. s ex trans dis (STD) d enies, denies. P rostate d enies, denies. M usculoskeletal: Hammertoes d enies, denies. B unions d enies, denies. B ack Pain d enies, denies. M uscle Cramps/ Resting d enies, denies. M uscle cramps / walking d enies, denies. G eneralized aches and pains d enies, denies. W eakness d enies, denies. I nteg.: Yoder d enies, denies. S cars d enies, denies. C orns/calluses d enies, denies. I ngrown nails d enies, denies. P ainful nails d enies, denies. O pen Sores d enies, denies. R ashes d enies, denies. ? N eurologic: Difficulty sleeping d enies, denies. B rain disorder?denies, denies. N umbness d enies, denies. B alance trouble d enies, denies. C onfusion d enies, denies. F ainting/blackouts d enies, denies. T ingling d enies, denies. T remors d enies, denies. * Medical History: * Surgical History: c ataract 2007cholecystectomy 2004leg surgery 1998shoulder surgery 2005hysterectomy/ bladder sling 2012abcess Aspiration/ Drainage, under arm - RT 07/16/2017left knee replacement 02/20/21right knee replacement 08/2021 * Hospitalization/Major Diagno stic Procedure: D enies Past Hospitalization * Family History: M other: , diagnosed with Unspecified essential hypertension, Family history of arthritis. F ather: , foot problems,, diagnosed with Unspecified essential hypertension, Unspecified heart disease. * Social History: T obacco Use: T obacco use other than smoking A re you an other tobacco user? N o Tobacco Control (Standard) T obacco use: N onsmoker A dditional Findings: Tobacco non-user C urrent nonsmoker M iscellaneous: C affeine: yes, frequency: coffee , 2 cups per day. Children: yes, 3. Exercise: yes, walking dog 30 min Daiy Zoom , exercise yoga, classes, 3-4 times per weekPT , 2 times per week. Marital status: . 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 D rug/Alcohol: A YUSUF-C (Standard) D id you have a drink containing alcohol in the past year? N o P oints 0 I nterpretation N egative * Medications: T akingmetFORMIN HCl 500 MG Tablet 1 tablet with a meal Orally Once a day Voltaren 1 % Gel as directed Externally Aspir-81 Trelegy Ellipta 200-62.5-25 MCG/ACT Aerosol Powder Breath Activated 1 puff Inhalation Once a day Meloxicam 15 MG Tablet 1 tablet Orally Once a day Atorvastatin Calcium 40 MG Tablet 1 tablet Orally Once a day Furosemide 80 MG Tablet 1 tablet Orally Once a day Gabapentin 300 MG Capsule 1 capsule Orally Once a day Pantoprazole Sodium 40 MG Tablet Delayed Release 1 tablet Orally Once a day Toprol XL 100 MG Tablet Extended Release 24 Hour 1 tablet Orally Once a day Ipratropium Mason 0.03 % Solution 2 SPRAY INTRANASALLY 2 TIMES A DAY ADMINISTER INTO EACH NOSTRIL Nasal Taking metFORMIN HCl 500 MG Tablet 1 tablet with a meal Orally Once a day Taking Voltaren 1 % Gel as directed Externally Taking Aspir-81 Taking Trelegy Ellipta 200-62.5-25 MCG/ACT Aerosol Powder Breath Activated 1 puff Inhalation Once a day Taking Meloxicam 15 MG Tablet 1 tablet Orally Once a day Taking Atorvastatin Calcium 40 MG Tablet 1 tablet Orally Once a day Taking Furosemide 80 MG Tablet 1 tablet Orally Once a day Taking Gabapentin 300 MG Capsule 1 capsule Orally Once a day Taking Pantoprazole Sodium 40 MG Tablet Delayed Release 1 tablet Orally Once a day Taking Toprol XL 100 MG Tablet Extended Release 24 Hour 1 tablet Orally Once a day Taking Ipratropium Mason 0.03 % Solution 2 SPRAY INTRANASALLY 2 TIMES A DAY ADMINISTER INTO EACH NOSTRIL Nasal Not-Taking/PRNApriso Ibuprofen , Notes to Pharmacist: PRNTrulicity 0.75 MG/0.5ML Solution Pen-injector as directed Subcutaneous Once a week DULoxetine HCl 30 MG Capsule Delayed Release Particles Orally Once a day Sulindac Simvastatin 40 MG Tablet Orally Once a day Asacol 40mg Lipitor 10 MG Tablet 1 tablet Orally Once a day Norvasc 10 MG Tablet 1 tablet Orally Once a day Work Note . . . . patient had foot surgery and is disabled from work until 06/17/16 Motrin buPROPion HCl Amoxicillin 500 MG Tablet 4 Orally Once a day Vicodin 5-500 MG Tablet 1 tablet as needed for pain Orally every 6 hrs Work Note . . . .This patient had foot surgery today and is disabled from work until 2013 . Medication List reviewed and reconciled with the patientNot-Taking/PRN Apriso Not-Taking/PRN Ibuprofen , Notes to Pharmacist: PRNNot-Taking/PRN Trulicity 0.75 MG/0.5ML Solution Pen-injector as directed Subcutaneous Once a week Not-Taking/PRN DULoxetine HCl 30 MG Capsule Delayed Release Particles Orally Once a day Not-Taking/PRN Sulindac Not-Taking/PRN Simvastatin 40 MG Tablet Orally Once a day Not-Taking/PRN Asacol 40mg Not-Taking/PRN Lipitor 10 MG Tablet 1 tablet Orally Once a day Not-Taking/PRN Norvasc 10 MG Tablet 1 tablet Orally Once a day Not-Taking/PRN Work Note . . . . patient had foot surgery and is disabled from work until 06/17/16 Not-Taking/PRN Motrin Not-Taking/PRN buPROPion HCl Not-Taking/PRN Amoxicillin 500 MG Tablet 4 Orally Once a day Not-Taking/PRN Vicodin 5-500 MG Tablet 1 tablet as needed for pain Orally every 6 hrs Not-Taking/PRN Work Note . . . .This patient had foot surgery today and is disabled from work until 2013 . Medication List reviewed and reconciled with the patient * Allergies: G entamicin Sulfate: rashHydrochlorothiazide: itchBactrim: rashyes[Allergies Verified] Objective: * Vitals: H t: 5ft, Wt:200, BMI:39.06, Shoe size: 7.5-8, BP:140/80mm Hg, Ht-cm: 152.4 cm, Wt-k.72 kg. * Examination: N ails: NAILS are: E longated, overgrown, dystrophic, lytic, greater than 3mm thick, discolored and friable with crumbly malodorous subungual debris, with pain on palpation, TA, T1, T2, T3, T4, T5, T6, T7, T8, T9. Assessment: * Assessment: 1. P ain in right toe(s) - M79.674 2 . O nychomycosis - B35.1 (Primary)? 3. P ain in left toe(s) - M79.675 Plan: * Treatment: * Procedures: D ebride Nail 6-10: Nail debridement D ue to the clinical pathology outlined in the exam findings, performance of this nail treatment is medically necessary as its management by an unskilled/untrained nonprofessional would put this patients foot and overall health at risk. Therefore, debridement to affected nail(s), as described in exam ( TA, T1, T2, T3, T4, T5, T6, T7, T8, T9, ), was performed exclusively by the physician of record to reduce/remove overall nail length, girth, thickness, subungual debris, and necrotic tissue, by manual and/or electrical means through the use of a nail nipper and/or dremel- type grinder hardboard, to a more viable healthy nail plate or bed tissue 6-10 nails in total. Silver nitrate was used for any petechial bleeding as necessary. Definitive antifungal treatment options, both pharmaceutical and surgical, have been reviewed and discussed with the patient. The patient solely prefers the use of intermittent/as needed professional debridement services for their nail condition and understands the need for additional periodic treatments to maintain effectiveness in symptomatic relief - 17137. * Immunizations: Influenza (Not administered - Refused: Patient decision) * Procedure Codes: 1 1721 DEBRIDE NAIL, 6 OR MORE * Follow Up: 3 Months * Images: * Sign off status: Completed true * Provider: Natasha Bradford DPM Date: 07/07/2024 Generated for Reese bautista/Hallie/Tmai on: 07/11/2024 07:03 PM EST History and Physical Notes * HPI (History of Present Illness) Category Sub-Category Detail Notes Category Not es Painful Nails Pt States Last PCP Visit: Date:: 01/15/2025 Examination Category Sub-Category Detail Notes Category Not es Nails NAILS are: Elongated, overg rown, dystrophic, lytic, greater than 3mm thick, discolored and friable with crumbly malodorous subungual debris, with pain on palpation, TA, T1, T2, T3, T4, T5, T6, T7, T8, T9
--- NOTE | 2025-05-11 13:09 | PFT_ITS ---
Indication: Cough Spirometry FEV1 to FVC 78% post bronchodilators and 73% pre bronchodilators; FEV1 1.9 L; FVC 2.45 L. No significant response to bronchodilators noted. Lung Volumes Total lung capacity 93% predicted Diffusion Capacity DLCO 71% predicted Comparisons None Interpretation No obstructive nor restrictive ventilatory defects identified. The patient has a normal maximum voluntary ventilation. Lung volumes are normal. The patient does have an isolated mild diffusion impairment. She would also correct for hemoglobin. If asthma is in the differential methacholine challenge may be helpful in assessing for hyperreactive airways. Clinical correlation warranted. MTDD
[2025-05-11 13:54] VITALS: PULSE 66
--- OUTSIDE RECORDS SUMMARY | 2025-05-11 19:04 | XMS_ITS | Patient Health Record ---
Author Organization [facility] Yeny isidoro [place] Address [address] [address] Care Team Providers Care Rail Splitter Name Role Phone LucieVikas Primary Care Provider Ivonne Bradford Unavailable [phone] Allergies Allergen (clinical drug ingredient) Drug/Non Drug Allergy documented on EMR Reaction Allergy Type Onset Date Status sulfamethoxazole / trimethoprim Bactrim rash Drug Allergy Active gentamicin Gentamicin Sulfate rash Drug Allergy Active hydrochlorothiazide Hydrochlorothiazide itch Drug Aller gy Active Results Component Value Reference Range Notes HEMOGLOBIN A1C (GLYCOHEMOGLO BIN) Reviewed date:02/05/2025 09:47:09 AM Interpretation: Performing Lab: Notes/Report: HEMOGLOBIN A1C % (HH) 6.6 Reason For Referral No Information Medications Medication SIG (Take, Route, Frequency, Duration) Notes Start Date End Date Status DULoxetine HCl 30 MG Orally Once a day Not-Taking Sulindac Not-Taking Simvastatin 40 MG Orally Once a day Not-Taking Asacol 40mg Not-Taki ng Lipitor 10 MG 1 tablet Orally Once a day; Duration: 30 day(s) Not-Fernando ing Norvasc 10 MG 1 tablet Orally Once a day; Duration: 30 day(s) Not-Fernando ing Work Note . . . patient had foot surgery and is disabled from work until 06/17/16 06/15/2016 Not-Fernando ing Motrin Not-Taking metFORMIN HCl 500 MG 1 tablet with a vivian l Orally Once a day Active buPROPion HCl Not-Ta dorian Voltaren 1 % as directed Externally Active Amoxicillin 500 MG 4 Orally Once a day; Duration: 1 dose Not-Taking Aspir-81 Active Vicodin 5-500 MG 1 tablet as needed f or pain Orally every 6 hrs Not-Takmarlon Wall Ellipta 200-62.5-25 MCG/ACT 1 puff Inhalation Once a day Active Work Note . . .This patient had foot surgery today and is disabled from work until Wednesday, 2013 .; Duration: . 02/28/2014 Not-Taking Meloxicam 15 MG 1 tablet Orally Once a day Active Atorvastatin Calcium 40 MG 1 tablet Orally Once a day Active Furosemide 80 MG 1 tablet Orally Once a day Active Gabapentin 300 MG 1 capsule Orally Onc e a day Active Pantoprazole Sodium 40 MG 1 tablet Orally Once a day Active Toprol XL 100 MG 1 tablet Orally Once a day Active Ipratropium Oak 0.03 % 2 SPRAY INTRANASALLY 2 TIMES A DAY ADMINISTER INTO EACH NOSTRIL Nasal; Duration: 90 Days Active Apriso Not-Taking Ibuprofen PRN Not-Taking Trulicity 0.75 MG/0.5ML as directed Subc utaneous Once a week Not-Taking Immunizations Vaccine Route Administration Date Status Comme nts Influenza Unknown 03/28/2022 Administered Influenza Unknown 02/28/2024 Administered Influenza Unknown 05/07/2025 Refused COVID-19 Moderna Vaccine Unknown 03/28/2022 Administered 1st 08/29/2020 2nd 09/26/2020 3rd 05/12/21 Social History Tobacco Use: Social History Observation [...] ast year? No Points 0 Interpretation Negative Problems Problem Type SNOMED Code ICD Code Onset Dates Problem Status W/U Status Risk Notes Problem Localized, primary osteoarthritis of the ankle and/or foot (589588779) Primary osteoarthritis, left ankle and foot (M19.072) Active confirmed Problem Plantar fascial fibromatosis (33992463) Plantar fascial fibromatosis (M72.2) Active confirmed Vital Signs Blood pressure diastolic 80 mm Hg 05/07/2025 Height 5ft in 05/07/2025 Blood pressure systolic 140 mm Hg 05/07/2025 Weight 200 lbs 05/07/2025 BMI 39.06 kg/m2 05/07/2025 Procedures Procedure Date Ordered Date Performed Result Body Sit e 19928-CHTTVMB NAIL, 6 OR MORE 06/15/2024 N/A 16653-VERRXQA NAIL, 6 OR MORE 10/23/2024 N/A 36086-BLRGIUM NAIL, 6 OR MORE 02/05/2025 N/A 52112-BQDZIYN NAIL, 6 OR MORE 05/07/2025 N/A Encounters Encounter Location Date Provider Diagnosis [address] [address] 06/15/2024 Ivonne Bradford Pain in right toe(s) M79.674 ; Onychomycosis B35.1 and Pain in left toe(s) M79.[address] [address] 10/23/2024 Ivonne Bradford Pain in right toe(s) M79.674 ; Onychomycosis B35.1 and Pain in left toe(s) M79.[address] [address] 02/05/2025 Ivonne Bradford Pain in right toe(s) M79.674 ; Onychomycosis B35.1 and Pain in left toe(s) M79.[address] [address] 05/07/2025 Ivonne Bradford Pain in right toe(s) M79.674 ; Onychomycosis B35.1 and Pain in left toe(s) M79.675 Assessments Encounter Date Diagnosis (ICD Code) Assessment Notes Treatment Notes Treatment Clinical Notes Section Notes 06/15/2024 Pain in right toe(s) (ICD-10 - M79.674) 10/23/2024 Pain in right toe(s) (ICD-10 - M79.674) 02/05/2025 Pain in right toe(s) (ICD-10 - M79.674) 05/07/2025 Pain in right toe(s) (ICD-10 - M79.674) 05/07/2025 Onychomycosis (ICD-10 - B35.1) 02/05/2025 Onychomycosis (ICD-10 - B35.1) 10/23/2024 Onychomycosis (ICD-10 - B35.1) 06/15/2024 Onychomycosis (ICD-10 - B35.1) 06/15/2024 Pain in left toe(s) (ICD-10 - M79.675) 10/23/2024 Pain in left toe(s) (ICD-10 - M79.675) 02/05/2025 Pain in left toe(s) (ICD-10 - M79.675) 05/07/2025 Pain in left toe(s) (ICD-10 - M79.675) Plan Of Treatment Pending Test Test Name Order Date X ray : Foot, left 3V 07/29/2011 17640-CARCNFE NAIL, 6 OR MORE 04/22/2016 22621-EDPNWHN NAIL, 6 OR MORE 12/14/2016 84590-DSCFIRZ NAIL, 6 OR MORE 03/15/2017 20231-EJGKHGW NAIL, 6 OR MORE 06/14/2017 59694-VVWGPZS NAIL, 6 OR MORE 09/06/2017 58395-BIHNPTY NAIL, 6 OR MORE 12/15/2017 29772-UNPCZRN NAIL, 6 OR MORE 03/16/2018 96120-XIBKCLH NAIL, 6 OR MORE 06/15/2018 00649-OFAHTSA NAIL, 6 OR MORE 06/15/2024 09100-QDUNYOW NAIL, 6 OR MORE 10/23/2024 49457-LSKRHPO NAIL, 6 OR MORE 02/05/2025 63390-LAARBKR NAIL, 6 OR MORE 05/07/2025 39817-KNPCCZY NAIL, 6 OR MORE 09/14/2016 02389-JJTZTSH NAIL, 1-5 08/07/2015 12134-Picmzujf Plate 10/24/2015 06724-Bohycxir Plate 07/31/2013 65253-Poibaxut Plate 10/04/2013 71260-Kohfpjva Plate 12/07/2013 29097-Xjexaccv Plate 02/28/2014 71224-Kzggkxxb Plate 05/14/2014 44648-Etbiicvb Plate 08/01/2014 79363-Wggdglmf Plate 10/24/2014 40534-Qatgbvpz Plate 07/21/2012 44763-Zipkukrg Plate 10/20/2012 11848-Vmglyxep Plate 01/11/2013 29429-Sfnqjggc Plate 03/15/2013 43937-Mftokiri Plate 02/26/2011 51662-Utppcpjt Plate 05/28/2011 95410-Mwjxfjlu Plate 07/29/2011 61804-Innzvigd Plate 11/05/2011 98125-Vzyxmzju Plate 01/20/2012 15155-Zxlxicdx Plate 04/11/2012 73301-Chcqqhfw Plate Each Additional 42038-Afuhzhgs Plate Each Additional 38749-Cluradpp Plate Each Additional 16939-Lnrodsoq Plate Each Additional 18772-Kfjzftvl Plate Each Additional 33485-MNU 01/14/2015 49764-QSJ 06/15/2016 18924- Debride <25 sq cm 07/06/2016 33883- Debride <25 sq cm 01/28/2015 30203 I&D ABSCESS- SIMPLE,SINGLE 015 83446 I&D ABSCESS- SIMPLE,SINGLE 014 06935 I&D ABSCESS- SIMPLE,SINGLE 013 46714 I&D ABSCESS- SIMPLE,SINGLE 012 73676, J0702- INJECT or DRAIN, JOINT/BUR SA 04/22/2016 98166, J0702- INJECT or DRAIN, JOINT/BUR SA 10/24/2015 67091, J0702- INJECT or DRAIN, JOINT/BUR SA 01/16/2016 30204, J0702- INJECT or DRAIN, JOINT/BUR SA 09/14/2016 60663,Y1775-HMZ TENDON SHEATH/LIGAMENT 0 07/29/2011 Next Appt Details Provider Name:Ivonne antunez, 08/20/2025 09:00:00 AM, [address] [facility], [place], [address], Insurance Providers Payer Name Payer Address Payer Phone Subscriber Number Group Number Insured Name Patient Relationship to Insured Coverage Start Date Coverage End Date Medicare National [employer] [address] [place] [address] [id number] [place] , Shayla Self - patient is the insured [address] [facility] [address] [place] [address] [id number] Shayla Paz Self - patient is the insured Medical (General) History Medical History History ICD Code vascular phlebitis(clots) hypertension fibromyalgia chicken pox hypercholesterolemia Arthritis uterine cancer Surgical History Surgery Date(Month/Year) cataract 2007 cholecystectomy 2003 leg surgery 1997 shoulder surgery 2004 hysterectomy/ bladder sling 2011 abcess Aspiration/ Drainage, under arm - RT 07/16/2017 left knee replacement 02/20/21 right knee replacement 08/2021
== END 2025-05-11 13:01 | disposition home or self-care (01) ==
LOC: HO.RESP 13:00
PROVIDERS: PCP Physician Assistant Medical; Visit Provider Nurse Practitioner Family
DX: R05.3 Chronic cough (principal)
CPT/HCPCS: 94060; 94640; 94727; 94729

== ENCOUNTER → 2025-05-11 13:09 | Outpatient (BNV) | payer MEDICARE, SELFPAY | PROVIDERS: PCP Physician Assistant Medical; Visit Provider Hospitalist | DX: R05.3 Chronic cough (principal) | CPT/HCPCS: 94060; 94727; 94729 ==

== ENCOUNTER 2025-05-21 12:54 | Outpatient (AMB) | payer MEDICARE, SELFPAY ==
--- NOTE | 2025-05-21 13:00 | MHC.OFFVIS ---
Vital Signs 05/21/25 13:01 Height 5 ft Weight 206 lb 2.115 oz BMI 40.3 BP 136/84 Blood Pressure Location Rt brachial Position Sitting Pulse 72 Pulse Source Pulse Oximeter Pulse Oximetry (%) 98 Oxygen Delivery Method Room Air Intake Visit Reasons: Cough/PFT Follow Up Allergies acetaminophen (Fioricet) Allergy (Unknown, Verified 05/21/25 13:05) Unknown butalbital (Fioricet) Allergy (Unknown, Verified 05/21/25 13:05) Unknown caffeine (Fioricet) Allergy (Unknown, Verified 05/21/25 13:05) Unknown hydrochlorothiazide Allergy (Unknown, Verified 05/21/25 13:05) Unknown oxycodone (Percocet) Allergy (Unknown, Verified 05/21/25 13:05) Unknown penicillin V Allergy (Unknown, Verified 05/21/25 13:05) Unknown Sulfa (Sulfonamide Antibiotics) Allergy (Unknown, Verified 05/21/25 13:05) Unknown Bactrim Allergy (Unknown, Uncoded 05/21/25 13:05) Unknown Penicillin Allergy (Unknown, Uncoded 05/21/25 13:05) Unknown Pt states no known food allerg Allergy (Unknown, Uncoded 05/21/25 13:05) Unknown HPI HPI Cough/PFT Follow Up: Details: Shayla is a pleasant 74-year-old female, never smoker, with underlying asthma, hypertension, GERD, hyperlipidemia and history of uterine cancer. At the last visit, patient was given a short course of prednisone as patient reported persistent dry cough with ground glass opacities demonstrated on prior Chest CT. She was also sent for labs to assess for underlying CTD, as ggo suggestive of ILD, however negative. She reports moderate improvement in frequency of cough with near resolution while on prednisone and continues to report ongoing improvement. She currently denies dyspnea, wheezing or chest tightness. She has also discontinued Trelegy as she felt the dry powder inhaler was increasing cough, unable to tolerate. She denies any visits to urgent care or hospitalizations related to respiratory distress since the last visit. Today she presents to review labs and PFT. [facility] Medical History Full code status Osteoarthritis History of mammogram (~05/17/24) Mass of right axilla H/O dysmenorrhea Uterine cancer Cervical erosion GERD (gastroesophageal reflux disease) Vertigo Menopause Fibromyalgia Depression History of colitis Superficial thrombophlebitis Venous insufficiency Varicose veins of both lower extremities Decreased hearing Pure hypercholesterolemia, unspecified Hypertension Prediabetes Hyperlipidemia Morbid obesity with body mass index (BMI) of 40.0 to 44.9 in adult Hoarseness Establishing care with new doctor, encounter for Chronic cough Bronchospasm Surgical History History of colonoscopy (~10/19/18) Family History Father BP (high blood pressure) High cholesterol Heart disease Mother Osteosarcoma Social History Housing: House Alcohol intake: current Alcohol intake frequency: a few times a month Patient Tobacco Use Status: Never used Tobacco service: No Current occupational status: retired Cognitive needs: Yes (cane) Hearing needs: No Vision needs: Yes (reading glasses) Review of Systems Const Denies chills, Denies excessive sweating, Denies fever(s), Denies headache(s) and Denies night sweats Eyes Denies dry eyes, Denies irritation and Denies itchy eyes ENT Reports Normal hearing present, Denies headache(s), Denies nasal congestion, Denies nasal discharge, Reports post nasal drip and Denies sore throat Card Denies chest pain, Denies chest pain at rest, Denies chest pain with activity, Denies claudication, Denies leg edema, Denies dyspnea, Denies dyspnea on exertion, Denies orthopnea and Denies paroxysmal nocturnal dyspnea Resp Denies chest congestion, Denies excessive phlegm production, Denies pain on inspiration, Denies pain with cough, Denies dyspnea, Denies dyspnea on exertion, Denies stridor and Denies wheezing Musc Denies myalgias Neuro Reports Normal hearing present and Denies headache(s) Endo Denies excessive sweating Grupo/Lymph Denies lymphadenopathy Aller/Immun Denies itchy eyes, Denies seasonal rhinorrhea and Denies wheezing Physical Exam Vital Signs: Last Vital Signs Pulse 72 05/21/25 13:01 BP 136/84 05/21/25 13:01 Pulse Ox 98 05/21/25 13:01 Oxygen Delivery Method Room Air 05/21/25 13:01 BMI result Body Mass Index 40.3 Const General: cooperative, healthy appearing, comfortable, no acute distress, well developed and alert Nutritional Appearance: obese Orientation/consciousness: patient oriented x3 Limitations: no limitations HEENT Head: Yes normal to inspection, Yes normocephalic and Yes atraumatic Ears: hearing grossly normal bilaterally and external ears normal Eyes General: appearance normal, both eyes and all related structures Eyelids: Yes eyelids normal Sclerae: sclerae normal EOM: EOMs intact bilaterally Neck Neck: Yes normal visual inspection and Yes no lymphadenopathy Lymphatic: no lymphadenopathy noted Chest Chest palpation & inspection: normal inspection of the chest Resp Effort & Inspection: normal respiratory effort, able to speak in complete sentences, no audible wheezes, no cough, no stridor, not tachypneic, no tripod positioning and no use of accessory muscles Auscultation: clear to auscultation bilaterally Cardio Jugular venous distension: no JVD Rate: regular rate Rhythm: regular rhythm Skin Other: warm, dry General skin exam: no rashes or lesions noted Neuro General: patient oriented x3 Cranial nerves: Yes Normal hearing present Cognition (Neuro): normal cognition Gait exam (Neuro): Normal gait present Extrem General: Yes normal to inspection, Yes capillary refill normal, Yes no clubbing, cyanosis or edema and Yes no pedal edema Psych Appearance: grossly normal and well kempt Speech and movement: Normal speech and movement present and Clear speech present Affect: normal affect Attitude: cooperative Thought process: Normal thought process present Thought content: Normal thought content present Insight: Good insight present (Psych) Judgement: Good judgement present (Psych) Assessment & Plan Assessment & Plan (1) Asthma: Code(s): J45.909 - Unspecified asthma, uncomplicated Category: Medical (2) Chronic cough: Code(s): R05.3 - Chronic cough Category: Medical (3) Ground glass opacity present on imaging of lung: Code(s): R91.8 - Other nonspecific abnormal finding of lung field Category: Medical Plan RAST negative, IgE WNL, no eosinophilia. PFT did not demonstrate any obstructive or restrictive defects however did reveal isolated DLCO, which could be suggestive of pulmonary edema. Will send for echo for further evaluation. At this time, Shayla reports overall improvements in cough, likely related to an inflammatory process as she responded to prednisone. She continues to report dry cough however less frequent therefore would like to hold off on additional prednisone at this time. She was unable to tolerate Trelegy due to the powder component, will send in Advair. Discussed importance of good oral hygiene to prevent thrush. She is aware to call of symptoms change. All questions were answered and patient is in agreement of plan. Will follow up in 8-10 weeks or sooner if needed. Orders: Orders CA echo transthoracic complete Today R94.2 - Abnormal results of pulmonary function studies Medications: New fluticasone propion-salmeterol 230-21 mcg/actuation (Advair HFA) 2 puffs inhalation Q12H 12 grams 3RF Discontinued [id number]-wzllvihgg-yboneyfy 200-62.5-25 mcg (Trelegy Ellipta) Discontinued Reason: Patient Completed Course 1 ea PO DAILY 60 ea 3RF Coding Level of Care Code Est Pt Level 4 (97459) Diagnoses Asthma J45.909 Chronic cough R05.3 Ground glass opacity present on imaging of lung R91.8
[2025-05-21 13:01] VITALS: BP 136/84; PULSE 72; O2SAT 98; BMI 40.3
== END 2025-05-21 13:28 | disposition home or self-care (01) ==
LOC: HO.HPS 12:55
PROVIDERS: PCP Physician Assistant Medical; Visit Provider Nurse Practitioner Family
DX: J45.909 Unspecified asthma, uncomplicated (principal); R05.3 Chronic cough; R91.8 Other nonspecific abnormal finding of lung field
CPT/HCPCS: 99214

== ENCOUNTER → 2025-05-21 12:54 | Outpatient (BNVA) | payer MEDICARE, SELFPAY | PROVIDERS: PCP Physician Assistant Medical; Visit Provider Nurse Practitioner Family | DX: J45.909 Unspecified asthma, uncomplicated (principal); R05.3 Chronic cough; R91.8 Other nonspecific abnormal finding of lung field | CPT/HCPCS: 99212 ==

== ENCOUNTER 2025-05-23 09:30 | Outpatient (REF) | payer MEDICARE, SELFPAY ==
--- NOTE | ~2025-05-23 | MM_ITS ---
EXAMINATION: DXA BONE DENSITY AXIAL HISTORY: M81.0 - Age-related osteoporosis without current pathological fracture TECHNIQUE: Realeyes 3D Dual energy absorptiometry (DEXA) of the lumbar spine, total left hip, and femoral neck was performed. COMPARISON: Comparison is made with the prior examination dated 06/11/2008. FINDINGS: The bone mineral density of the lumbar spine is 1.609 g/cm2, corresponding to a T-score of 3.4, and a Z-score of 4.3. This is indicative of normal bone mineral density. This represents a BMD change of 18.6% compared to the prior exam. This is statistically significant. The bone mineral density of the left total hip is 0.898 g/cm2, corresponding to a T-score of -0.9, and a Z-score of 0.1. This is indicative of normal bone mineral density. This represents a BMD change of -19.0% compared to the prior exam. This is statistically significant. The bone mineral density of the left femoral neck is 0.771 g/cm2, corresponding to a T-score of -1.9, and a Z-score of -0.7. This is indicative of osteopenia. This represents a BMD change of -22.6% compared to the prior exam. MM/XR DEXA axial skeleton IMPRESSION: Based on bone mineral density, and according to World Health Organization (WHO) criteria, the diagnosis is consistent with osteopenia. Statistically, 68% of repeat scans fall within 1 SD (+/- 0.010 g/cm2 for AP spine L1-L4) and 1 SD (+/- 0.012 g/cm2 for femur total) FRAX is a trademark of the [employer] [place] [facility] [employer] Disease, a World Health Organization (WHO) Collaborating Center. Electronically signed by: Tyshwan Guy MD 05/23/2025 10:48 AM [facility] [place]
--- NOTE | ~2025-05-23 | MM_ITS ---
EXAMINATION: MM SCREENING DIGITAL BREAST TOMOSYNTHESIS, BILATERAL CLINICAL INFORMATION: Screening. Asymptomatic. COMPARISON: Comparison made to multiple prior, most recent May 19, 2024, and most remote October 14, 2016. TECHNIQUE: Digital breast tomosynthesis is performed in mediolateral oblique and craniocaudal views along with computer-aided detection (CAD). Synthesized 2D images are generated from the tomosynthesis. FINDINGS: BREAST COMPOSITION: There are scattered areas of fibroglandular density. BILATERAL BREASTS: No significant masses, suspicious calcifications or other abnormalities are seen in either breast. MM/MM tomosynthesis screening BI IMPRESSION: BILATERAL BREASTS: Negative, no mammographic evidence of malignancy. Normal interval follow-up is recommended in 12 months. ASSESSMENT: BI-RADS: Category 1: Negative RECOMMENDATION: Routine annual mammography screening. FOLLOW-UP: 1 year F/U This examination should not preclude the clinical evaluation of a suspicious palpable abnormality. This patient's information was entered into a reminder system with a target due date for their next mammogram. Electronically signed by: Leroy Lofton MD 05/25/2025 03:59 PM [facility] [place]
== END 2025-05-23 09:31 | disposition home or self-care (01) ==
LOC: HO.MAMMO 09:30
PROVIDERS: PCP Physician Assistant Medical; Visit Provider Physician Assistant Medical
DX: Z12.31 Encounter for screening mammogram for malignant neoplasm of breast (principal); M81.0 Age-related osteoporosis without current pathological fracture
CPT/HCPCS: 77063; 77067; 77080

== ENCOUNTER → 2025-05-23 10:00 | Outpatient (BNV) | payer MEDICARE, SELFPAY | PROVIDERS: PCP Physician Assistant Medical; Visit Provider Radiology Diagnostic Radiology | DX: Z12.31 Encounter for screening mammogram for malignant neoplasm of breast (principal) | CPT/HCPCS: 77063; 77067; 77080 ==

== ENCOUNTER 2025-06-11 09:27 | Outpatient (AMB) | payer MEDICARE, SELFPAY ==
--- NOTE | 2025-06-11 09:28 | MHC.PC.OV ---
Vital Signs 06/11/25 09:31 Height 5 ft Weight 204 lb 0.4 oz BMI 39.8 BP 166/73 H Blood Pressure Location Rt brachial Pulse 63 Pulse Source Pulse Oximeter Temp 97 F Pulse Oximetry (%) 98 Intake Visit Reasons: 6 month follow up Intake Note: Been seeing pulmonary for the cough Allergies acetaminophen (Fioricet) Allergy (Unknown, Verified 06/11/25 09:54) Unknown butalbital (Fioricet) Allergy (Unknown, Verified 06/11/25 09:54) Unknown caffeine (Fioricet) Allergy (Unknown, Verified 06/11/25 09:54) Unknown hydrochlorothiazide Allergy (Unknown, Verified 06/11/25 09:54) Unknown oxycodone (Percocet) Allergy (Unknown, Verified 06/11/25 09:54) Unknown penicillin V Allergy (Unknown, Verified 06/11/25 09:54) Unknown Sulfa (Sulfonamide Antibiotics) Allergy (Unknown, Verified 06/11/25 09:54) Unknown Bactrim Allergy (Unknown, Uncoded 06/11/25 09:54) Unknown Penicillin Allergy (Unknown, Uncoded 06/11/25 09:54) Unknown Pt states no known food allerg Allergy (Unknown, Uncoded 06/11/25 09:54) Unknown Medication List - Last Reconciled 06/11/25 by Penelope Riley PA-C Advair HFA 230-21 mcg/actuation (fluticasone propion-salmeterol) 2 puffs inhalation Q12H NS aspirin 81 mg PO DAILY atorvastatin (Lipitor) 80 mg PO BEDTIME cetirizine (Zyrtec) 10 mg PO DAILY PRN furosemide (Lasix) 80 mg PO DAILY gabapentin 300 mg PO BEDTIME ipratropium bromide 2 sprays intranasal BID losartan 50 mg PO DAILY meloxicam 15 mg PO DAILY metformin ER 500 mg PO BID metoprolol succinate ER 100 mg PO DAILY pantoprazole 40 mg PO DAILY Tobacco use date assessed: 12/11/24 Dental Screening Dental Screen Date: 11/29/24 HPI HPI Comments History of Present Illness Details History of Present Illness The patient is a 74 year old female presenting for a six-month follow-up visit. She has been seeing a electrician refinery for a chronic cough. Workup for the cough included a chest CT and a pulmonary function test (PFT). 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 The patient endorses back stiffness and pain, consistent with DISH. The PFT did not show obstructive or restrictive deficits but did reveal an isolated low DLCO, suggestive of pulmonary edema. The electrician refinery is investigating a possible underlying asthma. Regarding her cardiac history, the patient reports shortness of breath with activity, especially when walking up a hill, which she previously attributed to her weight. She denies chest pain or shortness of breath when lying flat. Her last LDL was 104 mg/dL on 12/02/2024, and she is on atorvastatin 40 mg. She has been on this dose for a long time. She takes furosemide 80 mg and metoprolol 100 mg for blood pressure, which was started by a previous doctor. She reports significant urination in the morning. She has not seen a blender except for a pre-operative clearance for a weight loss surgery evaluation. For weight loss, she is on metformin but notes it has not been a significant factor. Her insurance (Medicare) previously did not approve weight loss injections. Social History - Tobacco Use: Patient is a never-smoker. - Activity Level: Experiences shortness of breath when walking, particularly up a hill. [facility], LATER [facility] Medical History SOB (shortness of breath) ROSA (dyspnea on exertion) Activity intolerance related to fatigue Full code status Osteoarthritis History of mammogram (~05/23/25) Mass of right axilla H/O dysmenorrhea Uterine cancer Cervical erosion GERD (gastroesophageal reflux disease) Vertigo Menopause Fibromyalgia Depression History of colitis Superficial thrombophlebitis Venous insufficiency Varicose veins of both lower extremities Decreased hearing Pure hypercholesterolemia, unspecified Hypertension Prediabetes Hyperlipidemia Morbid obesity with body mass index (BMI) of 40.0 to 44.9 in adult Hoarseness Establishing care with new doctor, encounter for Chronic cough Bronchospasm Surgical History History of colonoscopy (~10/19/18) Family History Father BP (high blood pressure) High cholesterol Heart disease Mother Osteosarcoma Social History Housing: House Alcohol intake: current Alcohol intake frequency: a few times a month Patient Tobacco Use Status: Never used Tobacco service: No Current occupational status: retired Cognitive needs: Yes (cane) Hearing needs: No Vision needs: Yes (reading glasses) Questionnaire PHQ-9 Over the last 2 weeks, how often have you been bothered by any of the following problems? 1. Little interest or pleasure in doing things: not at all 2. Feeling down, depressed, or hopeless: not at all 3. Trouble falling or staying asleep, or sleeping too much: not at all 4. Feeling tired or having little energy: not at all 5. Poor appetite or overeating: not at all 6. Feeling bad about yourself - or that you are a failure or have let yourself or your family down: not at all 7. Trouble concentrating on things, such as reading the newspaper or watching television: not at all 8. Moving or speaking so slowly that other people could have noticed. Or the opposite - being so fidgety or restless that you have been moving around a lot more than usual: not at all 9. Thoughts that you would be better off or of hurting yourself in some way: not at all Total score: 0 Depression Screening Interpretation: Negative Depression Screening Done: Yes 46336 - PHQ-9 Billing: Yes Source: Developed by Drs. Tyshawn Jacques, Zenaida Miramontes, Emil Groves and colleagues, with an educational shahid from [employer]. Thrive Questionnaire Date Thrive assessed: 11/29/24 I am a: Patient What is your living situation today?: I have a steady place to live Within the past 12 months, did the food you bought not last and you didn't have the money to get more?: Never true Within the past 12 months, did you worry whether your food would run out before you got money to buy more?: Never true Do you have trouble paying for medicines?: No Do you have trouble getting transportation to medical appointments?: No Do you have trouble paying your heating and electricity bill?: No Do you have trouble taking care of your child, family member or friend?: No Do you have trouble with day-to-day activities such as bathing, preparing meals, shopping, managing finances, etc.?: No Are you currently unemployed and looking for a job?: No Are you interested in more education?: No Please select the resources that you would like help with: None THRIVE Score: 0 AUDIT C Alcohol Use Questionnaire (AUDIT-C) 1. How often do you have a drink containing alcohol?: 2-4 times a month 2. How many drinks containing alcohol do you have on a typical day when you are drinking?: 1 or 2 3. How often do you have six or more drinks on one occasion?: Never Total Score: 2 Score Reviewed/Action Taken: No MARCO A-7 AMB Questionnaire MARCO A-7 Date MARCO A - 7 assessed: 11/29/24 Feeling nervous, anxious, or on edge: 0 = Not at all Not being able to stop or control worryin = Not at all Worrying too much about different things: 0 = Not at all Trouble relaxin = Not at all Being so restless that it is hard to sit still: 0 = Not at all Becoming easily annoyed or irritable: 0 = Not at all Feeling afraid as if something awful might happen: 0 = Not at all Total MARCO A-7 score (0-4 normal; 5-9 mild; 10-14 moderate; 15-21 severe): 0 Source: Developed by Drs. Tyshawn Jacques, Zenaida Miramontes, Emil Groves and colleagues, with an educational shahid from [employer]. MARCO A-7 Assessment Billing MARCO A-7 Assessment Tool: MARCO A-7 Assessment 20153 Review of Systems Narrative Review of Systems - General: Reports fatigue with activity. - Respiratory: Reports chronic cough and dyspnea on exertion, particularly when walking up a hill. - Cardiovascular: Denies chest pain or orthopnea. - Musculoskeletal: Reports back stiffness, pain, and aching, localized to the left side and mid-back. - Genitourinary: Reports polyuria, especially in the morning. Const All systems reviewed & are unremarkable except as noted in HPI and below Physical exam (Primary Care) Vital Signs: Last Vital Signs Temp 97 F 06/11/25 09:31 Pulse 63 06/11/25 09:31 BP 166/73 H 06/11/25 09:31 Pulse Ox 98 06/11/25 09:31 Care Plan Goal for BP management: <140/90 patient to continue Lasix 80 mg, metoprolol extended release 100 mg will add losartan 50 mg patient will return in 1 month for recheck BMI result Body Mass Index 39.8 BMI Assessment/Plan discussion: High BMI High, discussed plan: lifestyle, weight reduction, dietary, physical activity, alcohol moderation and other Tobacco/Smoking Status: Tobacco use Status Tobacco use date assessed 12/11/24 06/11/25 09:29 Patient Tobacco Use Status Never used Tobacco 06/11/25 09:29 PHQ-9: PHQ-9 Score PHQ-9: Total score 0 06/11/25 09:40 Depression Screening Interpretation: Negative Thrive Assessment: Date of Thrive Assessment Date Thrive assessed 11/29/24 06/11/25 09:29 Narrative Physical Exam Appearance: Alert. Oriented X3. No acute distress. Head: Normal external exam. Normocephalic. Atraumatic. Eyes: Pupils are equal, round, and reactive to light. Extraocular movements intact. Conjunctiva and sclera normal. Eyelids normal. Throat: Pharynx normal. Uvula midline. Moist mucous membranes. Neck: Normal inspection. Neck supple. Full range of motion. Cardiovascular: Normal heart rate and rhythm. Heart sound normal. No murmurs noted. Pulses normal throughout. Respiratory: No respiratory distress. Painless inspiration. Breath sounds normal. No wheezes/rales/rhonchi noted. No accessory muscle usage noted or decreased air movement noted. Back: Full range of motion noted. Reports stiffness and pain in the back, likely due to dysthoracic spine condition. Skin: Skin warm and dry. Normal skin color. Normal skin turgor. No rashes/lesions/lacerations noted. Extremities: No lower extremity edema. Extremities exhibit normal range of motion. Neuro: Oriented X 3. No motor deficit. No sensory deficit. Reflexes normal. Office Procedures Flu Questionnaire Does the patient have a severe egg allergy?: No Does the patient have severe life threatening allergies?: No Does the patient have a fever or illness today?: No Has the patient ever had Guillain-[place] Syndrome?: No Has the patient ever had any past reaction to a flu shot?: No Immunizations Fluarix [id number] (PF) 45 mcg (15 mcg x 3)/0.5 mL IM syringe Performing Provider: Penelope Riley PA-C Performing Location: [facility] Documented (not given) by: Morelia Muniz on 06/11/25 09:43 Reason Not Given: Patient Refused Results Reviewed Results Reviewed: - Chest CT: Showed no acute airspace disease, chronic interstitial lung disease, coronary artery disease, atherosclerotic disease, and findings suggestive of diffuse idiopathic skeletal hyperostosis of the thoracic spine. - Pulmonary Function Test: Did not reveal any obstructive or restrictive deficits, but showed isolated low DLCO suggestive of pulmonary edema. - Labs: LDL cholesterol was 104 mg/dL as of 12/02/2024. Coding Level of Care Code Est Pt Level 4 (57872) Add On Problem Visit Only Diagnoses Chronic cough R05.3 Hyperlipidemia E78.5 Hypertension I10 ROSA (dyspnea on exertion) R06.09 Morbid obesity with body mass index (BMI) of 40.0 to 44.9 in adult E66.01; Z68.41 Additional Codes MARCO A-7 Assessment Billing - MARCO A-7 Assessment Tool: MARCO A-7 Assessment 54395 ([id number]) PHQ-9 - 39753 - PHQ-9 Billing: Yes ([id number]) Time Spent (min) 60 Assessment & Plan Assessment & Plan (1) Chronic cough: Code(s): R05.3 - Chronic cough Category: Medical Plan: The patient is being managed by a electrician refinery for her chronic cough. Recent workup included a PFT which was concerning for pulmonary edema, and the electrician refinery is considering underlying asthma. An echocardiogram has been ordered by her specialist to further evaluate. (2) Hyperlipidemia: Code(s): E78.5 - Hyperlipidemia, unspecified Category: Medical Plan: Despite being on atorvastatin 40 mg for a long time, the patient's LDL remains above the goal of 100 mg/dL, with a recent result of 104 mg/dL. Given the presence of coronary artery disease, the treatment goal is an LDL of less than 70 mg/dL. Will increase her atorvastatin dose to 80 mg daily by having her double her current 40 mg tablets. The medication should be taken at bedtime. (3) Hypertension: Code(s): I10 - Essential (primary) hypertension Category: Medical Plan: The patient's blood pressure was elevated in the office at 160/70s mmHg, consistent with recent readings at her pulmonology visit. To improve blood pressure control, losartan 50 mg will be started, rather than an STEF inhibitor like lisinopril, to avoid exacerbating her chronic cough. The patient will monitor her blood pressure at home. (4) ROSA (dyspnea on exertion): Code(s): R06.09 - Other forms of dyspnea Category: Medical Plan: The patient reports shortness of breath and fatigue with activity, which raises concern for a cardiac etiology, especially given her high dose of furosemide (80 mg) and other risk factors. An echocardiogram is already scheduled by her electrician refinery for July 18. A stress test will also be ordered to be done at the same time if insurance approves, with diagnoses of activity intolerance, dyspnea on exertion, and shortness of breath provided for justification. A referral will be placed to cardiology for further evaluation given it may take months to get an appointment. (5) Morbid obesity with body mass index (BMI) of 40.0 to 44.9 in adult: Code(s): E66.01 - Morbid (severe) obesity due to excess calories; Z68.41 - Body mass index [BMI] 40.0-44.9, adult Category: Medical Plan: The patient is taking metformin for weight loss but has not seen significant results. Her metformin dose will be increased to 500 mg twice daily, with a plan to titrate up every two weeks via patient message, aiming for a target dose of 2000 mg daily. The patient has an existing supply of medication and will take two pills daily. Will attempt to resubmit a prior authorization for a weight loss injection in June, as Medicare coverage may be changing. Plan Plan Patient was informed and verbally consented to the use of an ambient scribe for clinic note documentation during this visit. 1. Chronic Cough The patient is being managed by a electrician refinery for her chronic cough. Recent workup included a PFT which was concerning for pulmonary edema, and the electrician refinery is considering underlying asthma. An echocardiogram has been ordered by her specialist to further evaluate. 2. Hyperlipidemia Despite being on atorvastatin 40 mg for a long time, the patient's LDL remains above the goal of 100 mg/dL, with a recent result of 104 mg/dL. Given the presence of coronary artery disease, the treatment goal is an LDL of less than 70 mg/dL. Will increase her atorvastatin dose to 80 mg daily by having her double her current 40 mg tablets. The medication should be taken at bedtime. 3. Hypertension The patient's blood pressure was elevated in the office at 160/70s mmHg, consistent with recent readings at her pulmonology visit. To improve blood pressure control, losartan 50 mg will be started, rather than an STEF inhibitor like lisinopril, to avoid exacerbating her chronic cough. The patient will monitor her blood pressure at home. 4. Dyspnea On Exertion The patient reports shortness of breath and fatigue with activity, which raises concern for a cardiac etiology, especially given her high dose of furosemide (80 mg) and other risk factors. An echocardiogram is already scheduled by her electrician refinery for July 18. A stress test will also be ordered to be done at the same time if insurance approves, with diagnoses of activity intolerance, dyspnea on exertion, and shortness of breath provided for justification. A referral will be placed to cardiology for further evaluation given it may take months to get an appointment. 5. Overweight The patient is taking metformin for weight loss but has not seen significant results. Her metformin dose will be increased to 500 mg twice daily, with a plan to titrate up every two weeks via patient message, aiming for a target dose of 2000 mg daily. The patient has an existing supply of medication and will take two pills daily. Will attempt to resubmit a prior authorization for a weight loss injection in June, as Medicare coverage may be changing. 6. Follow-Up The patient will return for a follow-up visit on July 23, after her scheduled echocardiogram. Discussion Notes I discussed the patient's elevated LDL cholesterol and the importance of better control given her diagnosis of coronary artery disease. I recommended increasing her atorvastatin to 80 mg daily. We also addressed her elevated blood pressure reading. I explained that I will prescribe losartan 50 mg, choosing it over lisinopril to avoid the side effect of cough, which could complicate the evaluation of her existing chronic cough. I reviewed the concerning findings from her pulmonology workup, including her dyspnea on exertion, high dose of furosemide, and PFT results suggesting pulmonary edema. I explained the plan to order a stress test to be done with her scheduled echocardiogram and to refer her to cardiology for a comprehensive evaluation, emphasizing that it could take months to secure an appointment. Regarding her weight management, we discussed a plan to titrate her metformin up to a maximum dose of 2000 mg per day, as tolerated, to aid in weight loss. I also informed her about the potential for Medicare to begin covering weight loss injections in the new year and that we would re-attempt to get this approved at her next visit. I instructed her to follow up in one month, specifically on July 23, after her cardiac imaging is completed. Orders: Orders CA stress test Today I10 - Essential (primary) hypertension, R06.02 - Shortness of breath, R06.09 - Other forms of dyspnea, R53.83 - Other fatigue NM cardiolite stress test Today I10 - Essential (primary) hypertension, R06.02 - Shortness of breath, R06.09 - Other forms of dyspnea, R53.83 - Other fatigue ECG 12 lead EKG Today I10 - Essential (primary) hypertension, R06.09 - Other forms of dyspnea, R53.83 - Other fatigue Influenza [id number] Immunization Today Z23 - Encounter for immunization Referrals Cardiology Referral E78.00 - Pure hypercholesterolemia, unspecified, E78.5 - Hyperlipidemia, unspecified, I10 - Essential (primary) hypertension, R06.09 - Other forms of dyspnea Medications: New losartan 50 mg PO DAILY 90 tabs 3RF Patient Instructions: Patient Instructions - You will be scheduled for a follow-up appointment on July 23. - Increase your atorvastatin (cholesterol medication) dose to 80 mg per day. You can do this by taking two of your current 40 mg pills each day. - Start taking the new blood pressure medication, losartan 50 mg, once daily. - Please check your blood pressure at home. - An order for a cardiac stress test will be placed. We will try to have this done at the same time as your scheduled echocardiogram on July 18. - We are referring you to a inbound ingredient logistics specialist (blender). - Increase your metformin dose to 500 mg twice a day (for a total of 1000 mg per day). In two weeks, send a portal message to request an increase to 1500 mg per day. Two weeks after that, you can request another increase to 2000 mg per day if you are not having side effects.
[2025-06-11 09:31] VITALS: BP 166/73; PULSE 63; TEMP 36.1; O2SAT 98; BMI 39.8
== END 2025-06-11 10:12 | disposition home or self-care (01) ==
LOC: HO.HMCSH 09:27
PROVIDERS: PCP Physician Assistant Medical; Visit Provider Physician Assistant Medical
DX: R05.3 Chronic cough (principal); E78.5 Hyperlipidemia, unspecified; I10 Essential (primary) hypertension; R06.09 Other forms of dyspnea; E66.01 Morbid (severe) obesity due to excess calories; Z68.41 Body mass index [BMI] 40.0-44.9, adult; Z23 Encounter for immunization

== ENCOUNTER → 2025-06-11 09:27 | Outpatient (BNVA) | payer MEDICARE, SELFPAY | PROVIDERS: PCP Physician Assistant Medical; Visit Provider Physician Assistant Medical | DX: R05.3 Chronic cough (principal); I10 Essential (primary) hypertension; E78.5 Hyperlipidemia, unspecified; R06.09 Other forms of dyspnea; Z13.31 Encounter for screening for depression | CPT/HCPCS: 90471; 96127; 99212 ==